=== PATIENT | male | born 1950 | race Caucasian/White ===

== ENCOUNTER → 2016-02-27 | Day surgery (SDC) | payer OTHER ==
[2016-02-23 11:32] VITALS: Ht 177.8 cm; Wt 109.1 kg
[~2016-02-27] VITALS: Ht 177.8 cm; Wt 109.1 kg
[~2016-02-27] MED LIST: ALLO300T2 PO; ATROPINE SULFATE 0.1 MG/ML 5ML SYR IV PRN; CEFAZOLIN 2000 MG/60 ML D5W IV SCH; CEFAZOLIN SOD 1 GM VIAL IRRIG ONE; DRGTP25 EXT; FENTANYL CITRATE INJ 50 MCG/1 ML 2 ML VIAL IV PRN; FENTANYL CITRATE INJ 50 MCG/1 ML 2 ML VIAL ONE; FNTTP50 TD; HEPARIN SOD (PORCINE) 1000 UNIT/ML 10 ML VIAL FLUSH ONE; LACTATED RINGER'S 1000ML 1,000 ML IV SCH; LEVE250T PO; LEVE500T PO; LIDOCAINE HCL 1% 20 ML VIAL INJ ONE; MIDAZOLAM HCL 1 MG/ML 2ML VIAL ONE; MORP30TA23 PO; MRPSR15 PO; MoRPHine SULFATE 2 MG/ML CARP IV PRN; MoRPHine SULFATE 4 MG/ML 1 ML CARP\\VIAL IV PRN; ONDA8TAB12 PO; ONDANSETRON INJ 2 MG/ML 2 ML VIAL IV PRN; ONDANSETRON INJ 2 MG/ML 2 ML VIAL ONE; OXYC1TAB3 PO; PANT40TA PO; PATIENT'S HEIGHT AND/OR WEIGHT NEEDED SCH; PROC1TAB5 PO; PROPOFOL IV EMULSION 10 MG/ML 20 ML VIAL IV ONE; THROMBIN FOR SOLN 20000 UNIT KIT TOP ONE; ZYR10 PO; [UNRECOGNIZED DRUG - CODE] INJ
--- NOTE | 2016-02-27 06:50 | History and Physical ---
History & Physical Date Feb 27, 2016. 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 for chemotherapy- access port placement Past Medical/Surgical History Medical Problems: (1) ANXIETY STATE NOS (2) Arthroscopy of knee joint (3) CELLULITIS OF LEG (4) Cholangiocarcinoma (5) GOUT NOS (6) HYPERLIPIDEMIA NEC/NOS (7) HYPERTENSION NOS (8) Mass of skull (9) Metastatic adenocarcinoma (10) Pleural effusion (11) SYNCOPE AND COLLAPSE Additional History Hepatic Disease: Yes Allergies Coded Allergies: Ciprofloxacin (Verified Allergy, Severe, SOB/SWELLING, 02/23/16) Sulfa Antibiotics (Verified Allergy, Severe, THROAT CLOSED WITH SULFA DRUGS, 02/23/16) Codeine (Verified Allergy, Unknown, "couldn't breath", 02/27/16) Latex1 -Allergic Contact Dermititis (Unverified Allergy, Unknown, HAD LATEX CATHETER AND HAD BURNING ITCHING, 02/23/16) Home Medications Scheduled Allopurinol (Zyloprim), 300 MG PO QAM Cetirizine HCl (All Day Allergy), 10 MG PO QAM Morphine Sulfate (Ms Contin), 30 MG PO Q12 Pantoprazole (Protonix), 40 MG PO QAM Scheduled PRN Ondansetron Hcl (Zofran), 8 MG PO TID PRN for Nausea Oxycodone Ir (Roxicodone Ir), 5 MG PO Q4H PRN for Severe Pain Prochlorperazine Maleate (Compazine), 10 MG PO Q6H PRN for Nausea Physical Examination Skin: warm/dry Eyes: normal inspection Head: atraumatic Neck: supple Respiratory/Chest: no respiratory distress Cardiovascular: regular rate, rhythm Abdomen / GI: non tender Extremities: normal inspection Diagnosis metastatic carcinoma- for port placement Plan of Treatment access port placement
--- NOTE | 2016-02-27 07:47 | [facility] Operative Report ---
Operative Report Operative Date Feb 27, 2016. Pre-Operative Diagnosis metastatic carcinoma Post-Operative Diagnosis same Procedure(s) Performed port placement Surgeon Dr. Gigi Chaudhry Program Instructor Surgeon(s) None Estimated Blood Loss 10ml Findings placed via Lt cephalic vein Specimens none Anesthesia local/ sedation Complication(s) None Disposition Recovery Room / PACU I attest to the content of the Intraoperative Record and any orders documented therein. Any exceptions are noted below.
--- NOTE | 2016-02-27 07:51 | Discharge Instructions ---
Discharge Instructions Visit Reason for Visit: Cholangiocarinoma Discharge Discharge Diagnosis / Problem: cholangiocarcinoma, port placement Discharge Goals Goal(s): Decrease discomfort, Improve function, Improve disease control Activity Recommendations Activity Limitations: as noted below Lifting Limitations: no more than 10 pounds Exercise/Sports Limitations: until after follow-up appointment May Resume Sexual Activity: when tolerated Shower/Bathe: tomorrow Driving or Machine Use: resume 3 days after discharge Anesthesia . Post Anesthesia Instructions: If you have had General Anesthesia or IV Sedation: * Do not drive today. * Resume driving when surgeon permits. * Do not make important decisions or sign legal documents today. * Call surgeon for: 1. Temperature elevations greater than 101 degrees F. 2. Uncontrollable pain. 3. Excessive bleeding. 4. Persistent nausea and vomiting. 5. Medication intolerance (nausea, vomiting or rash). * For nausea and vomiting use only clear liquids such as: tea, soda, bouillon until nausea subsides, then gradually increase diet as tolerated. * If you have any concerns or questions, call your surgeon's office. If physician is unavailable and it is an emergency, call 911 or go to the nearest emergency room. . Instructions / Follow-Up Instructions / Follow-Up SPECIAL CARE INSTRUCTIONS: * Cover incisions and change daily for comfort/drainage. * May use pain medication you already have for pain * Expect some swelling and bruising. Call your doctor if: * Temperature above 101 degrees * Pain not relieved by pain medicine ordered * There is increased drainage or redness from any incision * You have any unanswered questions or concerns [phone]. FOLLOW UP VISIT: If not already scheduled, please call the office for a follow-up visit. for 2 weeks- [facility] OFFICE PHONE NUMBER: Dr. Chaudhry Office Diet Recommendations Recommended Home Diet: resume previous diet Procedures Procedures Performed: Insertion of A-Port In Left Cephalic Vein Pending Studies Studies pending at discharge: no Medical Emergencies . Who to Call and When: Medical Emergencies: If at any time you feel your situation is an emergency, please call 911 immediately. . Non-Emergent Contact Non-Emergency issues call your: Surgeon . . "Provider Documentation" section prepared by Gigi Chaudhry.
--- NOTE | 2016-02-27 08:01 | Anesthesiology Progress Note ---
Anesthesia Post Op Note Date & Time Feb 27, 2016 at 08:01 Vital Signs Pain Intensity: 0 Vital Signs Past 12 Hours Date Time Temp Pulse Resp B/P Pulse Ox O2 Delivery O2 Flow Rate FiO2 02/27/16 07:49 36.2 87 16 127/85 100 Mask 10 Notes Mental Status: alert / awake / arousable, participated in evaluation Pt Amnestic to Procedure: Yes Nausea / Vomiting: adequately controlled Pain: adequately controlled Airway Patency, RR, SpO2: stable & adequate BP & HR: stable & adequate Hydration State: stable & adequate Anesthetic Complications: no major complications apparent
--- NOTE | 2016-02-27 08:23 | OPERATIVE REPORT ---
DATE OF OPERATION: 02/27/2016 NAME OF OPERATION: Port placement. PREOPERATIVE DIAGNOSIS: Cholangiocarcinoma. POSTOPERATIVE DIAGNOSIS: Same. STAFF SURGEON: Dr. Chaudhry. ANESTHESIA: 1% plain lidocaine with sedation. DESCRIPTION OF PROCEDURE: The patient was brought in the operating room and placed on the operating table in supine position. His left chest was prepped and draped in usual fashion. Using 1% plain lidocaine, skin and subcutaneous tissue over the left deltopectoral groove were anesthetized. Incision made carrying dissection down identifying the cephalic vein which was ligated distally using 2-0 silk suture. It was then opened and under fluoroscopy, a catheter was placed down into the superior vena cava and then secured in place after appropriate aspiration and flushing with heparinized solution. It was secured using 2-0 silk suture. A pocket was fashioned in the subcutaneous tissue. The port was attached to the catheter. The port was aspirated and flushed with heparinized solution. It was placed into the pocket and then secured using 3-0 Prolene suture. The deep tissue was reapproximated using 2-0 plain catgut suture and 2-0 chromic catgut suture. The pocket was irrigated with antibiotic solution and also some thrombin was used. The skin was reapproximated using interrupted 4-0 nylon suture. Dressing applied and patient transferred to recovery room in stable condition. I attest to the content of the Intraoperative Record and any orders documented therein. Any exceptio ns are noted below.
--- NOTE | 2016-02-27 08:26 | DIAGNOSTIC IMAGING REPORT ---
CHEST ONE VIEW PORTABLE HISTORY: Status post port placement. COMPARISON: Chest 02/17/2016. FINDINGS: Interval placement of a left subclavian Port-A-Cath with the tip terminating in the distal SVC. No pneumothorax. The heart is mildly enlarged. Blunting of the bilateral costophrenic sulci. Bibasilar linear densities favor subsegmental atelectasis. The upper lung zones are clear. IMPRESSION: 1. Interval placement left subclavian Port-A-Cath which terminates in the SVC. No pneumothorax. 2. Suspect trace bilateral pleural effusions. Electronically signed by: Coleman Schulz M.D. 02/27/2016 8:24 AM
[2016-02-27 08:30] VITALS: BP 132/84; PULSE 93; TEMP 36.8; O2SAT 92
[2016-02-27 09:00] VITALS: BP 138/80; PULSE 99; TEMP 36.5; O2SAT 93
== END | disposition home or self-care (01) ==
LOC: C.ACU 05:10
PROVIDERS: ATTEND Surgery
DX: C22.1 Intrahepatic bile duct carcinoma (principal); C79.51 Secondary malignant neoplasm of bone; I10 Essential (primary) hypertension; M10.9 Gout, unspecified; Z88.5 Allergy status to narcotic agent; Z88.2 Allergy status to sulfonamides; Z88.1 Allergy status to other antibiotic agents; Z91.040 Latex allergy status; Z68.37 Body mass index [BMI] 37.0-37.9, adult; Z98.890 Other specified postprocedural states

== ENCOUNTER 2016-03-04 11:43 | Inpatient (IN) | payer OTHER ==
[~2016-03-04] VITALS: Ht 177.8 cm; Wt 105.6 kg
[~2016-03-04 11:43] MED LIST changes: -ATROPINE SULFATE 0.1 MG/ML 5ML SYR IV PRN; -CEFAZOLIN 2000 MG/60 ML D5W IV SCH; -CEFAZOLIN SOD 1 GM VIAL IRRIG ONE; -DRGTP25 EXT; -FENTANYL CITRATE INJ 50 MCG/1 ML 2 ML VIAL IV PRN; -FENTANYL CITRATE INJ 50 MCG/1 ML 2 ML VIAL ONE; -FNTTP50 TD; -HEPARIN SOD (PORCINE) 1000 UNIT/ML 10 ML VIAL FLUSH ONE; -LACTATED RINGER'S 1000ML 1,000 ML IV SCH; -LEVE250T PO; -LEVE500T PO; -LIDOCAINE HCL 1% 20 ML VIAL INJ ONE; -MIDAZOLAM HCL 1 MG/ML 2ML VIAL ONE; -MRPSR15 PO; -MoRPHine SULFATE 2 MG/ML CARP IV PRN; -MoRPHine SULFATE 4 MG/ML 1 ML CARP\\VIAL IV PRN; -ONDANSETRON INJ 2 MG/ML 2 ML VIAL IV PRN; -ONDANSETRON INJ 2 MG/ML 2 ML VIAL ONE; -PATIENT'S HEIGHT AND/OR WEIGHT NEEDED SCH; -PROPOFOL IV EMULSION 10 MG/ML 20 ML VIAL IV ONE; -THROMBIN FOR SOLN 20000 UNIT KIT TOP ONE; -[UNRECOGNIZED DRUG - CODE] INJ
[2016-03-04] MEDS ORDERED: SODIUM CHLORIDE 0.9% 1000ML 1,000 ML IV STA (12:13)
[2016-03-04] MEDS ORDERED: ONDANSETRON INJ 2 MG/ML 2 ML VIAL IV STA ×2 (12:13→13:48)
[2016-03-04] MEDS ORDERED: MoRPHine SULFATE 4 MG/ML 1 ML CARP\\VIAL IV STA (12:13)
[2016-03-04 12:58] LABS: BUN/CREATININE RATIO 15.3 (10-20); CALCIUM 8.6 mg/dl (8.5-10.1); POTASSIUM 3.4 mmol/L (3.5-5.1)
[2016-03-04 13:01] LABS: ALB/GLOB RATIO 0.8 (0.9-2)
[2016-03-04 13:18] LABS: COMPLETE YES
--- NOTE | 2016-03-04 13:21 | DIAGNOSTIC IMAGING REPORT ---
CHEST 2 VIEWS ROUTINE HISTORY: Nausea. Vomiting. COMPARISON: Chest 02/27/2016. FINDINGS: No focal lung consolidations to suggest pneumonia. No evidence for pulmonary edema. The heart remains mildly enlarged. Small right pleural effusion persists. There are few scattered nodules consistent with the patient's history of metastatic disease. Left subclavian Port-A-Cath terminates at the distal SVC. No pneumothorax. IMPRESSION: 1. Overall, no significant change compared to the prior studies. 2. Small right pleural effusion and scattered metastatic pulmonary nodules are again noted. Electronically signed by: Coleman Schulz M.D. 03/04/2016 1:19 PM Dictated Date/Time: 03/04/2016 1:17 PM
--- NOTE | 2016-03-04 13:23 | DIAGNOSTIC IMAGING REPORT ---
ABDOMEN 2 VIEWS HISTORY: Nausea and vomiting. COMPARISON: Abdomen and pelvis CT 02/02/2016. FINDINGS: No definite pneumoperitoneum or pneumatosis. There are no dilated loops of bowel to suggest an obstruction. Small right pleural effusion persists. A few scattered lytic osseous lesions are again noted. IMPRESSION: 1. No evidence for bowel obstruction. 2. A few scattered lytic metastatic osseous lesions are again noted. 3. Small right pleural effusion persists. Electronically signed by: Coleman Schulz M.D. 03/04/2016 1:21 PM Dictated Date/Time: 03/04/2016 1:19 PM
[2016-03-04] MEDS ORDERED: DiphenhydrAMINE HCL 50 MG/ML VIAL IV STA (13:48)
--- NOTE | 2016-03-04 14:28 | EMERGENCY ROOM VISIT NOTE ---
ED Visit Note First contact with patient: 11:57 65-year-old male with a history of metastatic cancer was fully evaluated by Daryl Mackey PA-C. Please see his note. I also independently evaluated the patient. The patient is markedly anemic. He will require transfusion. The patient will require admission. The hospitalist was consulted. 1600 Revision of the CBC was made and it was found that the patient was not anemic. Therefore the patient will not require transfusion . IMPRESSION: Metastatic Cancer
[2016-03-04] MEDS ORDERED: LORAZEPAM 2 MG/ML 1 ML VIAL IV PRN (14:45)
[2016-03-04] MEDS ORDERED: DiphenhydrAMINE HCL 50 MG/ML VIAL IV PRN ×2 (14:45)
[2016-03-04] MEDS ORDERED: ZOLPIDEM TARTRATE 5 MG TAB PO PRN (14:45)
[2016-03-04] MEDS: PROMETHAZINE HCL INJ 25 MG in SODIUM CHLORIDE 0.9% 50ML 50 ML IV PRN (14:56)
[2016-03-04] MEDS: HYDROmorphone INJ 0.5 MG/0.5 ML SYR IV PRN ×2 (14:56→17:19)
--- NOTE | 2016-03-04 15:13 | History and Physical ---
History & Physical Date & Time of Service: Mar 04, 2016 at 15:02 Chief Complaint: Vomiting X 2 Days-Chemo Treatment Made Him Sick Primary Care Physician: Travis Lenz M.D. History of Present Illness Source: patient, spouse Patient is a 65-year-old male with a known history of cholangiocarcinoma and metastatic adenocarcinoma, most recently hospitalized from February 01 of February 10 for a pleural effusion requiring a Pleurx catheter, which has since been removed in the outpatient setting by Dr. Gaston, who presents to the emergency department with shortness of breath, generalized malaise, intractable nausea and progressive generalized pain. Past Medical/Surgical History Medical Problems: (1) ANXIETY STATE NOS Status: Chronic (2) Arthroscopy of knee joint Status: Resolved (3) CELLULITIS OF LEG Status: Resolved (4) GOUT NOS Status: Resolved (5) HYPERLIPIDEMIA NEC/NOS Status: Chronic (6) HYPERTENSION NOS Status: Chronic (7) Metastatic adenocarcinoma Permanent Comment: Metastatic cholangiocarcinoma to the brain Treatment: 1. gemcitabine/cisplatin chemotherapy 2 craniotomy April 2015 for calvarial metastatic disease 3. Ongoing chemotherapy increasing pain of the right rib area 4. Status post completion of radiation therapy to the right ribs and liver received 3000 cGy completed 02/10/2016 Status: Chronic (8) SYNCOPE AND COLLAPSE Status: Chronic Family History Diabetes mellitus FH: heart disease FH: lung disease FHx: cancer Hypertension Social History Smoking Status: Former Smoker Smokeless Tobacco Use: No Alcohol Use: none Drug Use: none Marital Status: Housing status: lives with family Occupational Status: retired Immunizations History of Influenza Vaccine: No History of Tetanus Vaccine?: Yes History of Pneumococcal: No History of Hepatitis B Vaccine: Yes Multi-Drug Resistant Organisms History of MDRO: No Allergies Coded Allergies: Ciprofloxacin (Verified Allergy, Severe, SOB/SWELLING, 03/04/16) Sulfa Antibiotics (Verified Allergy, Severe, THROAT CLOSED WITH SULFA DRUGS, 03/04/16) Codeine (Verified Allergy, Unknown, "couldn't breath", 03/04/16) Latex1 -Allergic Contact Dermititis (Unverified Allergy, Unknown, HAD LATEX CATHETER AND HAD BURNING ITCHING, 03/04/16) Home Medications Scheduled Allopurinol (Zyloprim), 300 MG PO QAM Cetirizine HCl (All Day Allergy), 10 MG PO QAM Morphine Sulfate (Ms Contin), 30 MG PO Q12 Pantoprazole (Protonix), 40 MG PO QAM Scheduled PRN Ondansetron Hcl (Zofran), 8 MG PO TID PRN for Nausea Oxycodone Ir (Roxicodone Ir), 5 MG PO Q4H PRN for Severe Pain Prochlorperazine Maleate (Compazine), 10 MG PO Q6H PRN for Nausea Review of Systems The patient denies chest pain, palpitations, cough, lower extremity swelling, vision change, hearing change, sore throat, fevers, chills, sweats, blood in urine or stool, dysuria, urinary frequency or urgency, lightheadedness, dizziness, headache, memory loss, rash, abnormal bruising or bleeding, imbalance , focal weakness, numbness or tingling in arms or legs, arthralgias or myalgias , back or neck pain, night sweats, or allergy symptoms. The review of systems is otherwise negative other than for that already noted above, and at least 10 systems have been reviewed. Physical Exam Vital Signs Date Time Temp Pulse Resp B/P Pulse Ox O2 Delivery O2 Flow Rate FiO2 03/04/16 14:37 74 20 126/78 98 Room Air 03/04/16 11:53 36.4 85 18 188/80 98 Room Air The patient is awake, well-developed and adequately nourished, alert and oriented 3, normocephalic and atraumatic, lying in bed and in mild distress secondary to pain. HEENT--PERRL, EOMI, mucous membranes and oropharynx dry. Neck--supple, no JVD or bruits, thyroid normal, trachea midline, no adenopathy. Heart--normal S1 and S2, no extra beats, no murmurs, rubs or gallops. Lungs--clear bilaterally with good air movement, no respiratory distress, no accessory muscle use. Abdomen--normal bowel sounds and soft, nontender and nondistended, no hernias or masses, no organomegaly. Extremities--no cyanosis, clubbing. There is bilateral pitting Edema right greater than left. There are good distal pulses b/l. Dermatologic--normal skin turgor, normal color, warm and dry, no abnormal lymph nodes, no rash. Neurologic--cranial nerves II through XII grossly intact, motor and sensory examination normal. Rheumatologic--normal range of motion, nontender, muscles and joints. Psychiatric--normal affect. Diagnostics Laboratory Results Results Past 24 Hours Test 03/04/16 12:30 Range/Units White Blood Count 5.70 4.8-10.8 K/uL Red Blood Count 1.90 4.7-6.1 M/uL Hemoglobin 5.8 14.0-18.0 g/dL Hematocrit 17.4 42-52 % Mean Corpuscular Volume 91.6 80-100 fL Mean Corpuscular Hemoglobin 30.5 25-34 pg Mean Corpuscular Hemoglobin Concent 33.3 32-36 g/dl Platelet Count 45 130-400 K/uL Mean Platelet Volume 8.9 7.4-10.4 fL Neutrophils (%) (Auto) 77.3 % Lymphocytes (%) (Auto) 18.8 % Monocytes (%) (Auto) 2.1 % Eosinophils (%) (Auto) 1.6 % Basophils (%) (Auto) 0.0 % Neutrophils # (Auto) 4.41 1.4-6.5 K/uL Lymphocytes # (Auto) 1.07 1.2-3.4 K/uL Monocytes # (Auto) 0.12 0.11-0.59 K/uL Eosinophils # (Auto) 0.09 0-0.5 K/uL Basophils # (Auto) 0.00 0-0.2 K/uL RDW Standard Deviation 49.2 36.4-46.3 fL RDW Coefficient of Variation 14.7 11.5-14.5 % Immature Granulocyte % (Auto) 0.2 % Immature Granulocyte # (Auto) 0.01 0.00-0.02 K/uL Hypersegmented Polys 1+ Tear Drop Cells 1+ Sodium Level 139 136-145 mmol/L Potassium Level 3.4 3.5-5.1 mmol/L Chloride Level 103 98-107 mmol/L Carbon Dioxide Level 25 21-32 mmol/L Anion Gap 11.0 3-11 mmol/L Blood Urea Nitrogen 15 7-18 mg/dl Creatinine 1.00 0.60-1.40 mg/dl Est Creatinine Clear Calc Drug Dose 89.6 ml/min Estimated GFR () 91.1 Estimated GFR (Non- 78.6 BUN/Creatinine Ratio 15.3 10-20 Random Glucose 104 70-99 mg/dl Calcium Level 8.6 8.5-10.1 mg/dl Total Bilirubin 0.9 0.2-1 mg/dl Aspartate Amino Transf (AST/SGOT) 38 15-37 U/L Alanine Aminotransferase (ALT/SGPT) 27 12-78 U/L Alkaline Phosphatase 97 45-117 U/L Total Protein 7.1 6.4-8.2 gm/dl Albumin 3.2 3.4-5.0 gm/dl Globulin 3.9 2.5-4.0 gm/dl Albumin/Globulin Ratio 0.8 0.9-2 Amylase Level 44 25-115 U/L Lipase 95 73-393 U/L Diagnostic Radiology Patient Name: MALLORY DO Unit Number: [id number] Dictated: 03/04/161316 Transcribed: 03/04/161316 [facility] Printed Date/Time: [~ rep prt dt]/[~ rep prt tm] [~ rep ct labl] - [~ rep ct ivnm] [facility] [place] [address] Dictated: 03/04/161316 Transcribed: 03/04/161316 [facility] Printed Date/Time: [~ rep prt dt]/[~ rep prt tm] [~ rep ct labl] - [~ rep ct ivnm] [~ rep ct add3]] CHEST 2 VIEWS ROUTINE HISTORY: Nausea. Vomiting. COMPARISON: Chest 02/27/2016. FINDINGS: No focal lung consolidations to suggest pneumonia. No evidence for pulmonary edema. The heart remains mildly enlarged. Small right pleural effusion persists. There are few scattered nodules consistent with the patient's history of metastatic disease. Left subclavian Port-A-Cath terminates at the distal SVC. No pneumothorax. IMPRESSION: 1. Overall, no significant change compared to the prior studies. 2. Small right pleural effusion and scattered metastatic pulmonary nodules are again noted. Electronically signed by: Coleman Schulz M.D. 03/04/2016 1:19 PM Dictated Date/Time: 03/04/2016 1:17 PM The status of this report is Signed. Draft = Not yet reviewed or approved by Radiologist. Signed = Reviewed and approved by Radiologist. <AttendingPhy></AttendingPhy> <FamilyPhy>Maximiliano Noble D.O.</FamilyPhy> < PrimaryPhy>Travis Lenz M.D.</PrimaryPhy> <UnitNumber>[id number]</ UnitNumber> <VisitNumber>[id number]</VisitNumber> <PatientName>MALLORY DO</PatientName> <DateOfBirth>1950</DateOfBirth> <Location>[facility]</ Location> <ServiceDate>03/04/16</ServiceDate> <MNE>ESINDI</MNE> <OrderingPhy> Mackey Cory D PA-C</OrderingPhy> <OrderingPhyMNE>f rep ord dr romo</ OrderingPhyMNE> <DictatingPhyMNE>f rep dict dr romo</DictatingPhyMNE> <CCListMNE> f rep ct mne</CCListMNE> <AdmittingPhyMNE>f pt admit dr romo</AdmittingPhyMNE> < AttendingPhyMNE>f pt attend dr romo</AttendingPhyMNE> <ConsultingPhyMNE>f pt consult dr romo</ConsultingPhyMNE> <FamilyPhyMNE>f pt fam dr romo</FamilyPhyMNE> <OtherPhyMNE>f pt other dr romo</OtherPhyMNE> < PrimaryPhyMNE>f pt prim care dr romo</PrimaryPhyMNE> <ReferringPhyMNE>f pt referring dr romo</ReferringPhyMNE> Patient Name: MALLORY DO Unit Number: [id number] Dictated: 03/04/161318 Transcribed: 03/04/161318 [facility] Printed Date/Time: [~ rep prt dt]/[~ rep prt tm] [~ rep ct labl] - [~ rep ct ivnm] [facility] [place] [address] Dictated: 03/04/161318 Transcribed: 03/04/161318 [facility] Printed Date/Time: [~ rep prt dt]/[~ rep prt tm] [~ rep ct labl] - [~ rep ct ivnm] [~ rep ct add3]] ABDOMEN 2 VIEWS HISTORY: Nausea and vomiting. COMPARISON: Abdomen and pelvis CT 02/02/2016. FINDINGS: No definite pneumoperitoneum or pneumatosis. There are no dilated loops of bowel to suggest an obstruction. Small right pleural effusion persists. A few scattered lytic osseous lesions are again noted. IMPRESSION: 1. No evidence for bowel obstruction. 2. A few scattered lytic metastatic osseous lesions are again noted. 3. Small right pleural effusion persists. Electronically signed by: Coleman Schulz M.D. 03/04/2016 1:21 PM Dictated Date/Time: 03/04/2016 1:19 PM The status of this report is Signed. Draft = Not yet reviewed or approved by Radiologist. Signed = Reviewed and approved by Radiologist. <AttendingPhy></AttendingPhy> <FamilyPhy>Maximiliano Noble D.O.</FamilyPhy> < PrimaryPhy>Travis Lenz M.D.</PrimaryPhy> <UnitNumber>[id number]</ UnitNumber> <VisitNumber>[id number]</VisitNumber> <PatientName>MALLORY DO</PatientName> <DateOfBirth>1950</DateOfBirth> <Location>[facility]</ Location> <ServiceDate>03/04/16</ServiceDate> <MNE>ESINDI</MNE> <OrderingPhy> Mackey Cory D PA-C</OrderingPhy> <OrderingPhyMNE>f rep ord dr romo</ OrderingPhyMNE> <DictatingPhyMNE>f rep dict dr romo</DictatingPhyMNE> <CCListMNE> f rep ct mne</CCListMNE> <AdmittingPhyMNE>f pt admit dr romo</AdmittingPhyMNE> < AttendingPhyMNE>f pt attend dr romo</AttendingPhyMNE> <ConsultingPhyMNE>f pt consult dr romo</ConsultingPhyMNE> <FamilyPhyMNE>f pt fam dr romo</FamilyPhyMNE> <OtherPhyMNE>f pt other dr romo</OtherPhyMNE> < PrimaryPhyMNE>f pt prim care dr romo</PrimaryPhyMNE> <ReferringPhyMNE>f pt referring dr romo</ReferringPhyMNE> Impression Assessment and Plan Symptomatic anemia with a history of cholangiocarcinoma and metastatic adenocarcinoma undergoing chemotherapy--patient be admitted to the medical oncology suite. He'll be transfused 2 units of packed red blood cells now, without have a follow-up H&H, and 2 more will be on hold. He'll be placed on normal saline with potassium chloride 20 mEq at 100 ML's per hour. We'll follow serial basic metabolic panel and magnesium levels. His oncologist Dr. Noble will be consulted. Thrombocytopenia--platelets on admission are 45. He will have serial laboratories performed, and will be transfused as needed. He does not show any active signs of bleeding at this time. Gout--continue allopurinol 300 mg by mouth every morning. GERD--continue pantoprazole 40 mg by mouth every morning. Pain management--continue MS Contin 30 mg by mouth every 12 hours, increase oxycodone IR when necessary from 5-10 mg by mouth every 4 hours when necessary, and have available Dilaudid 0.5-1 mg IV every 2 hours when necessary breakthrough pain. Allergy--continue cetirizine 10 mg by mouth daily. Pleural effusion history requiring Pleurx catheter--chest x-ray reveals only a small right pleural effusion at this time. Level of Care Med/Surg Advanced Directives Existing Advance Directive: No Existing Living Will: No Existing Power of Solar Technician: No Resuscitation Status FULL RESUSCITATION VTE Prophylaxis VTE Risk Assessment Done? Y/N: Yes Risk Level: Moderate Given or contraindicated: SCD's Social Service Consult Cancer Patient Under [place]
[2016-03-04 15:39] LABS: COMPLETE YES; EOS % 1.3 %; HEMATOCRIT 36.7 % (42-52); IG% 0.2 %; LYMPH % 19.2 %; LYMPH ABS # 0.89 K/uL (1.2-3.4); MEAN CELL VOLUME 91.3 fL (80-100); MEAN CORPUSCULAR HEMOGLOBIN 31.1 pg (25-34); MEAN CORPUSCULAR HGB CONC 34.1 g/dl (32-36); MONO % 1.7 %; NEUT % 77.6 %; PLATELET COUNT 42 K/uL (130-400); PLT ESTIMATE DECREASED; RED BLOOD COUNT 4.02 M/uL (4.7-6.1); WHITE BLOOD COUNT 4.64 K/uL (4.8-10.8)
[2016-03-04 16:24] VITALS: BP 157/95; PULSE 74; TEMP 37.1; O2SAT 98
[2016-03-04] MEDS: ONDANSETRON INJ 2 MG/ML 2 ML VIAL IV PRN (17:02)
[2016-03-04] MEDS: OXYCODONE HCL IR 5 MG TAB (IMMEDIATE RELEASE) PO PRN (17:04)
[2016-03-04] MEDS: HYDROmorphone INJ 1 MG/ML SYR IV PRN ×2 (19:39→22:02)
[2016-03-04 19:40] VITALS: BP 139/81; PULSE 69; TEMP 36.4; O2SAT 96
[2016-03-04] MEDS: MoRPHine SULFATE CR 15 MG TAB (MS CONTIN) PO SCH (21:58)
[2016-03-04] MEDS: LORAZEPAM 2 MG/ML 1 ML VIAL IV PRN (21:58)
[2016-03-04 23:08] VITALS: BP 124/85; PULSE 78; TEMP 36.7; O2SAT 95
[2016-03-05] VITALS (7 sets, daily range): BP systolic 114–135; BP diastolic 70–89; PULSE 80–97; TEMP 36.4–36.9; O2SAT 93–98
[2016-03-05] MEDS: ONDANSETRON INJ 2 MG/ML 2 ML VIAL IV PRN ×2 (04:31→14:54)
[2016-03-05] MEDS: HYDROmorphone INJ 1 MG/ML SYR IV PRN ×4 (04:31→19:17)
[2016-03-05 06:19] LABS: MEAN CORPUSCULAR HGB CONC 32.8 g/dl (32-36)
[2016-03-05 06:22] LABS: HEMATOCRIT 37.2 % (42-52); MEAN CELL VOLUME 91.9 fL (80-100); MEAN CORPUSCULAR HEMOGLOBIN 30.1 pg (25-34); RED BLOOD COUNT 4.05 M/uL (4.7-6.1); WHITE BLOOD COUNT 4.77 K/uL (4.8-10.8)
[2016-03-05 06:42] LABS: PLATELET COUNT 42 K/uL (130-400)
[2016-03-05 06:43] LABS: COMPLETE YES; EOS % 1.5 %; IG% 0.4 %; INR 1.1 (0.9-1.1); LYMPH ABS # 0.86 K/uL (1.2-3.4); MONO % 2.3 %; NEUT % 77.8 %; PARTIAL THROMBOPLASTIN RATIO 1.3; PLT ESTIMATE DECREASED; PROTHROMBIN TIME (PATIENT) 12.3 SECONDS (9.0-12.0); TEAR DROP CELLS 2+
[2016-03-05 06:53] LABS: CALCIUM 8.4 mg/dl (8.5-10.1); CREATININE 1.1 mg/dl (0.60-1.40); MAGNESIUM 1.6 mg/dl (1.8-2.4); POTASSIUM 3.1 mmol/L (3.5-5.1)
[2016-03-05] MEDS: PROMETHAZINE HCL INJ 25 MG in SODIUM CHLORIDE 0.9% 50ML 50 ML IV PRN ×2 (09:09→19:24)
--- NOTE | 2016-03-05 09:47 | Clinical Documentation Query ---
CLINICAL DOCUMENTATION QUERY 65-y/o male who presents with N/V. Patient was originally thought to have chemotherapy induced anemia but that lab draw was reported in error and repeated to be essentially normal. It seems in the meantime the patient was admitted. In your clinical opinion is this patient being managed for: (x ) Chemo induced Nausea & Vomiting treated with IV antienemics ( ) Other explanation of clinical findings (Please Explain) ( ) Unable to determine (Please Define) ( ) Need to Discuss ( ) Not Agree The medical record reflects the following clinical findings, treatment, and risk factors. Clinical Indicators: N/V Treatment:IV Zofran Risk Factors:Chemotherapy Please clarify and document your clinical opinion in the progress notes and discharge summary. Terms such as "probable", "suspected", "likely", "questionable", "possible", or "still to be ruled out" are acceptable. IF IN AGREEMENT, YOU MUST DOCUMENT ABOVE DIAGNOSTIC STATEMENT IN DAILY PROGRESS NOTES AND DISCHARGE SUMMARY. This document is not part of the patient's record. Thank You, Gen Merino, RN [phone]
[2016-03-05] MEDS: CETIRIZINE HCL 10 MG TAB PO SCH (09:48)
[2016-03-05] MEDS: PANTOprazole SOD 40 MG TAB PO SCH (09:49)
[2016-03-05] MEDS: ALLOPURINOL 300 MG TAB PO SCH (09:49)
[2016-03-05] MEDS: MoRPHine SULFATE CR 15 MG TAB (MS CONTIN) PO SCH ×2 (09:53→20:24)
--- NOTE | 2016-03-05 11:18 | Oncology Consultation ---
Oncology/Heme Consultation Date of Consultation: Mar 05, 2016. Attending Physician: Diony Feliciano D.O. Reason for Consultation: Patient with a history of metastatic adenocarcinoma with pathology most consistent with cholangiocarcinoma Refractory nausea vomiting History of Present Illness Mr. 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 In July 2014 Mr. Friedman experienced temporary loss of vision involving the right eye. CT scan of the head abdomen and pelvis were performed in July 2015. There was a new osteolytic metastatic lesions seen in the right temporal calvarium. He also had experienced a small lump in the right frontal area and developed a dull headache. A fine-needle aspiration done in April 2015 showed epithelial cells consistent with a malignant neoplasm. A resection of the frontal bone mass done in April 2015 would reveal metastatic adenocarcinoma most consistent with cholangiocarcinoma he has been receiving systemic chemotherapy first with cisplatin and gemcitabine but unfortunately with progression and most recently just a few days ago he received leucovorin 5-FU and oxaliplatin. He is now admitted with refractory nausea and vomiting. He has known pulmonary nodules as well as bony metastases and liver as well as splenic metastases. He denies any fever or chills. His pain seems fairly well controlled although he does have some mild abdominal pain. 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 Gemcitabine/cisplatin chemotherapy - last cycle - 08/05/2015 2. Craniotomy - 04/2015 (Dr. Webb) - for calvarial metastatic disease Status: Acute (5) Metastatic cancer Status: Acute (6) Vomiting Status: Acute Family History Diabetes mellitus FH: heart disease FH: lung disease FHx: cancer Hypertension Social History Smoking Status: Former Smoker Smokeless Tobacco Use: No Alcohol Use: none Drug Use: none Marital Status: Housing Status: lives with family Occupation Status: retired Allergies Coded Allergies: Ciprofloxacin (Verified Allergy, Severe, SOB/SWELLING, 03/04/16) Sulfa Antibiotics (Verified Allergy, Severe, THROAT CLOSED WITH SULFA DRUGS, 03/04/16) Codeine (Verified Allergy, Unknown, "couldn't breath", 03/04/16) Latex1 -Allergic Contact Dermititis (Unverified Allergy, Unknown, HAD LATEX CATHETER AND HAD BURNING ITCHING, 03/04/16) Home Medications Scheduled Allopurinol (Zyloprim), 300 MG PO QAM Cetirizine HCl (All Day Allergy), 10 MG PO QAM Morphine Sulfate (Ms Contin), 30 MG PO Q12 Pantoprazole (Protonix), 40 MG PO QAM Scheduled PRN Ondansetron Hcl (Zofran), 8 MG PO TID PRN for Nausea Oxycodone Ir (Roxicodone Ir), 5 MG PO Q4H PRN for Severe Pain Prochlorperazine Maleate (Compazine), 10 MG PO Q6H PRN for Nausea Current Inpatient Medications Current Inpatient Medications Medications (Trade) Dose Ordered Sig/Aleah Route Start Time Stop Time Status Last Admin Dose Admin Zolpidem Tartrate (Ambien Tab) 5 mg HSZ PRN PO 03/04/16 14:45 04/03/16 14:44 Allopurinol (Zyloprim Tab) 300 mg QAM PO 03/05/16 08:00 04/04/16 08:59 03/05/16 09:49 300 MG Cetirizine HCl (zyrTEC TAB) 10 mg QAM PO 03/05/16 08:00 04/04/16 08:59 03/05/16 09:48 10 MG Oxycodone HCl (Roxicodone Immediate Rel Tab) 10 mg Q4H PRN PO 03/04/16 14:45 03/18/16 14:44 Pantoprazole Sodium (Protonix Tab) 40 mg QAM PO 03/05/16 08:00 04/04/16 08:59 03/05/16 09:49 40 MG Morphine Sulfate (Oramorph Sr Tab) 30 mg Q12 PO 03/04/16 21:00 03/18/16 20:59 03/05/16 09:53 30 MG Ondansetron HCl (Zofran Inj) 4 mg Q6H PRN IV 03/04/16 14:45 04/03/16 14:44 03/05/16 04:31 4 MG Diphenhydramine HCl (Benadryl Inj) 25 mg Q4H PRN IV 03/04/16 14:45 04/03/16 14:44 Diphenhydramine HCl (Benadryl Inj) 50 mg Q6H PRN IV 03/04/16 14:45 04/03/16 14:44 Lorazepam (Ativan Inj) 0.5 mg Q4H PRN IV 03/04/16 14:45 04/03/16 14:44 Lorazepam (Ativan Inj) 1 mg Q4H PRN IV 03/04/16 14:45 04/03/16 14:44 03/04/16 21:58 1 MG Hydromorphone HCl (Dilaudid Inj) 1 mg Q2H PRN IV 03/04/16 14:45 03/18/16 14:44 03/05/16 08:43 1 MG Hydromorphone HCl 0.5 mg 0.5 mg Q2H PRN IV 03/04/16 14:45 03/18/16 14:44 03/04/16 17:19 0.5 MG Promethazine HCl/ Sodium Chloride (Phenergan Inj/ Nss 50ml) 51 ml @ 204 mls/hr Q6H PRN IV 03/04/16 14:45 04/03/16 14:44 03/05/16 09:09 204 MLS/HR Heparin Sodium (Porcine) (Heparin 100 Unit/ml 5ml Flush) 5 ml PRN PRN IV 03/04/16 21:45 04/03/16 21:44 03/05/16 10:41 5 ML Review of Systems Constitutional: Negative for night sweats, or fever Eyes: Negative for event change of vision ENT: Negative for epistaxis, nasal discharge, sore throat, or deafness Cardiovascular: Negative for chest pain, palpitations, dizziness, diaphoresis Respiratory: Negative for new shortness of breath,hemoptysis, or purulent cough Gastrointestinal: Negative for diarrhea, hematemesis, melena, nausea, vomiting , or dyspepsia. If anything he has been constipated. Has had some mild abdominal pain Integumentary (skin): Negative for rash or jaundice discoloration Genitourinary: Negative for urinary frequency, hematuria, or dysuria Neurological: Negative for weakness, seizure activity, headache, or dizziness Lymphatic/Hematologic: Negative for petechiae, bleeding or new adenopathy Musculoskeletal: Negative for new joint or back pain Allergic/Immunologic: Negative for unusual rash or pruritis. Physical Exam Date Time Temp Pulse Resp B/P Pulse Ox O2 Delivery O2 Flow Rate FiO2 03/05/16 08:45 98 Room Air 03/05/16 08:33 36.4 80 16 125/80 98 Room Air 03/05/16 04:00 36.4 87 20 131/87 95 Room Air 03/05/16 00:05 Room Air 03/04/16 23:08 36.7 78 16 124/85 95 Room Air 03/04/16 19:40 36.4 69 20 139/81 96 Room Air 03/04/16 19:40 Room Air 03/04/16 16:24 37.1 74 18 157/95 98 Room Air 03/04/16 14:37 74 20 126/78 98 Room Air 03/04/16 11:53 36.4 85 18 188/80 98 Room Air Constitutional: vitals are stable. Eyes: Eyes are SHAKA EOMI without conjuctival erythema or icterus. ENT: External examination was negative for masses. Neck: Negative for masses or palpable thyromegaly Respiratory: Lung sounds were generally clear bilaterally Cardiovascular: Heart was RRR without significant murmur, gallops aoe rubs Gastrointestinal: No palpable hepatic or splenomegaly. The abdomen was soft with normal bowel sounds. Lymphatic system: there was no palpable peripheral lymphadenopathy Musculoskeletal System: The musculoskeletal system seemed concordant with age. Skin: The skin was negative for jaundice. Neurologic exam: The exam was negative for any focal findings. Deep tendon reflexes were equal and symmetrical. Psychiatric exam: Was essentially negative with normal mood and effect. Extremities: Negative for edema erythema Laboratory Results Last 24 Hours Test 03/04/16 12:30 03/04/16 14:50 03/05/16 05:07 White Blood Count K/uL 4.64 K/uL 4.77 K/uL Red Blood Count M/uL 4.02 M/uL 4.05 M/uL Hemoglobin g/dL 12.5 g/dL 12.2 g/dL Hematocrit % 36.7 % 37.2 % Mean Corpuscular Volume fL 91.3 fL 91.9 fL Mean Corpuscular Hemoglobin pg 31.1 pg 30.1 pg Mean Corpuscular Hemoglobin Concent g/dl 34.1 g/dl 32.8 g/dl Platelet Count K/uL 42 K/uL 42 K/uL Mean Platelet Volume fL 10.0 fL Neutrophils (%) (Auto) % 77.6 % 77.8 % Lymphocytes (%) (Auto) % 19.2 % 18.0 % Monocytes (%) (Auto) % 1.7 % 2.3 % Eosinophils (%) (Auto) % 1.3 % 1.5 % Basophils (%) (Auto) % 0.0 % 0.0 % Neutrophils # (Auto) K/uL 3.60 K/uL 3.71 K/uL Lymphocytes # (Auto) K/uL 0.89 K/uL 0.86 K/uL Monocytes # (Auto) K/uL 0.08 K/uL 0.11 K/uL Eosinophils # (Auto) K/uL 0.06 K/uL 0.07 K/uL Basophils # (Auto) K/uL 0.00 K/uL 0.00 K/uL RDW Standard Deviation fL 49.1 fL 50.0 fL RDW Coefficient of Variation % 14.6 % 14.8 % Immature Granulocyte % (Auto) % 0.2 % 0.4 % Immature Granulocyte # (Auto) K/uL 0.01 K/uL 0.02 K/uL Hypersegmented Polys Tear Drop Cells 2+ Sodium Level 139 mmol/L 142 mmol/L Potassium Level 3.4 mmol/L 3.1 mmol/L Chloride Level 103 mmol/L 105 mmol/L Carbon Dioxide Level 25 mmol/L 26 mmol/L Anion Gap 11.0 mmol/L 11.0 mmol/L Blood Urea Nitrogen 15 mg/dl 15 mg/dl Creatinine 1.00 mg/dl 1.10 mg/dl Est Creatinine Clear Calc Drug Dose 89.6 ml/min 81.4 ml/min Estimated GFR () 91.1 81.2 Estimated GFR (Non- 78.6 70.1 BUN/Creatinine Ratio 15.3 14.0 Random Glucose 104 mg/dl 102 mg/dl Calcium Level 8.6 mg/dl 8.4 mg/dl Total Bilirubin 0.9 mg/dl 0.8 mg/dl Aspartate Amino Transf (AST/SGOT) 38 U/L 38 U/L Alanine Aminotransferase (ALT/SGPT) 27 U/L 22 U/L Alkaline Phosphatase 97 U/L 93 U/L Total Protein 7.1 gm/dl 6.9 gm/dl Albumin 3.2 gm/dl 3.0 gm/dl Globulin 3.9 gm/dl Albumin/Globulin Ratio 0.8 Amylase Level 44 U/L Lipase 95 U/L Platelet Estimate DECREASED DECREASED Prothrombin Time 12.3 SECONDS Prothromb Time International Ratio 1.1 Activated Partial Thromboplast Time 34.5 SECONDS Partial Thromboplastin Ratio 1.3 Magnesium Level 1.6 mg/dl Direct Bilirubin 0.4 mg/dl Assessment & Plan Widely metastatic adenocarcinoma presumably cholangiocarcinoma. Patient was recently treated with leucovorin 5-FU and oxaliplatin. He presents now with nausea vomiting. He tends to have a mild thrombocytopenia. Would recommend IV fluid anti-emetics and supportive care. Hopefully the nausea or resolve over the next 24-48 hours. Plain films of the abdomen have ruled out obstruction.
--- NOTE | 2016-03-05 14:09 | Progress Note ---
Subjective Date of Service: Mar 05, 2016. 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 Gemcitabine/cisplatin chemotherapy - last cycle - 08/05/2015 2. Craniotomy - 04/2015 (Dr. Webb) - for calvarial metastatic disease Status: Acute (5) Metastatic cancer Status: Acute (6) Vomiting Status: Acute Review of Systems Constitutional: + fatigue, + weakness Abdomen: + nausea, + pain All Other Systems: Reviewed and Negative Medications Current Inpatient Medications Medications (Trade) Dose Ordered Sig/Aleah Route Start Time Stop Time Status Last Admin Dose Admin Zolpidem Tartrate (Ambien Tab) 5 mg HSZ PRN PO 03/04/16 14:45 04/03/16 14:44 Allopurinol (Zyloprim Tab) 300 mg QAM PO 03/05/16 08:00 04/04/16 08:59 03/05/16 09:49 300 MG Cetirizine HCl (zyrTEC TAB) 10 mg QAM PO 03/05/16 08:00 04/04/16 08:59 03/05/16 09:48 10 MG Oxycodone HCl (Roxicodone Immediate Rel Tab) 10 mg Q4H PRN PO 03/04/16 14:45 03/18/16 14:44 Pantoprazole Sodium (Protonix Tab) 40 mg QAM PO 03/05/16 08:00 04/04/16 08:59 03/05/16 09:49 40 MG Morphine Sulfate (Oramorph Sr Tab) 30 mg Q12 PO 03/04/16 21:00 03/18/16 20:59 03/05/16 09:53 30 MG Ondansetron HCl (Zofran Inj) 4 mg Q6H PRN IV 03/04/16 14:45 04/03/16 14:44 03/05/16 04:31 4 MG Diphenhydramine HCl (Benadryl Inj) 25 mg Q4H PRN IV 03/04/16 14:45 04/03/16 14:44 Diphenhydramine HCl (Benadryl Inj) 50 mg Q6H PRN IV 03/04/16 14:45 04/03/16 14:44 Lorazepam (Ativan Inj) 0.5 mg Q4H PRN IV 03/04/16 14:45 04/03/16 14:44 Lorazepam (Ativan Inj) 1 mg Q4H PRN IV 03/04/16 14:45 04/03/16 14:44 03/04/16 21:58 1 MG Hydromorphone HCl (Dilaudid Inj) 1 mg Q2H PRN IV 03/04/16 14:45 03/18/16 14:44 03/05/16 08:43 1 MG Hydromorphone HCl 0.5 mg 0.5 mg Q2H PRN IV 03/04/16 14:45 03/18/16 14:44 03/04/16 17:19 0.5 MG Promethazine HCl/ Sodium Chloride (Phenergan Inj/ Nss 50ml) 51 ml @ 204 mls/hr Q6H PRN IV 03/04/16 14:45 04/03/16 14:44 03/05/16 09:09 204 MLS/HR Heparin Sodium (Porcine) (Heparin 100 Unit/ml 5ml Flush) 5 ml PRN PRN IV 03/04/16 21:45 04/03/16 21:44 03/05/16 10:41 5 ML Objective Vital Signs Date Time Temp Pulse Resp B/P Pulse Ox O2 Delivery O2 Flow Rate FiO2 03/05/16 11:41 36.6 91 16 121/76 97 Room Air 03/05/16 08:45 98 Room Air 03/05/16 08:33 36.4 80 16 125/80 98 Room Air 03/05/16 04:00 36.4 87 20 131/87 95 Room Air 03/05/16 00:05 Room Air 03/04/16 23:08 36.7 78 16 124/85 95 Room Air 03/04/16 19:40 36.4 69 20 139/81 96 Room Air 03/04/16 19:40 Room Air 03/04/16 16:24 37.1 74 18 157/95 98 Room Air 03/04/16 14:37 74 20 126/78 98 Room Air Physical Exam General Appearance: no apparent distress, + obese Eyes: normal inspection, EOMI, sclerae normal ENT: normal ENT inspection, hearing grossly normal, pharynx normal Neck: supple, no adenopathy, no JVD, trachea midline Respiratory/Chest: chest non-tender, lungs clear, normal breath sounds, no respiratory distress, no accessory muscle use Cardiovascular: regular rate, rhythm, no edema, no gallop, no JVD, no murmur Abdomen: normal bowel sounds, non tender, soft, no organomegaly Extremities: normal range of motion, non-tender, normal inspection, no pedal edema, no calf tenderness Neurologic/Psychiatric: flat drier II-XII nml as tested, no motor/sensory deficits, alert, normal mood/affect, oriented x 3 Skin: normal color, warm/dry, no rash Lymphatic: no adenopathy Laboratory Results Last 24 Hours Test 03/04/16 14:50 03/05/16 05:07 White Blood Count 4.64 K/uL 4.77 K/uL Red Blood Count 4.02 M/uL 4.05 M/uL Hemoglobin 12.5 g/dL 12.2 g/dL Hematocrit 36.7 % 37.2 % Mean Corpuscular Volume 91.3 fL 91.9 fL Mean Corpuscular Hemoglobin 31.1 pg 30.1 pg Mean Corpuscular Hemoglobin Concent 34.1 g/dl 32.8 g/dl Platelet Count 42 K/uL 42 K/uL Mean Platelet Volume 10.0 fL Neutrophils (%) (Auto) 77.6 % 77.8 % Lymphocytes (%) (Auto) 19.2 % 18.0 % Monocytes (%) (Auto) 1.7 % 2.3 % Eosinophils (%) (Auto) 1.3 % 1.5 % Basophils (%) (Auto) 0.0 % 0.0 % Neutrophils # (Auto) 3.60 K/uL 3.71 K/uL Lymphocytes # (Auto) 0.89 K/uL 0.86 K/uL Monocytes # (Auto) 0.08 K/uL 0.11 K/uL Eosinophils # (Auto) 0.06 K/uL 0.07 K/uL Basophils # (Auto) 0.00 K/uL 0.00 K/uL RDW Standard Deviation 49.1 fL 50.0 fL RDW Coefficient of Variation 14.6 % 14.8 % Immature Granulocyte % (Auto) 0.2 % 0.4 % Immature Granulocyte # (Auto) 0.01 K/uL 0.02 K/uL Platelet Estimate DECREASED DECREASED Tear Drop Cells 2+ Prothrombin Time 12.3 SECONDS Prothromb Time International Ratio 1.1 Activated Partial Thromboplast Time 34.5 SECONDS Partial Thromboplastin Ratio 1.3 Sodium Level 142 mmol/L Potassium Level 3.1 mmol/L Chloride Level 105 mmol/L Carbon Dioxide Level 26 mmol/L Anion Gap 11.0 mmol/L Blood Urea Nitrogen 15 mg/dl Creatinine 1.10 mg/dl Est Creatinine Clear Calc Drug Dose 81.4 ml/min Estimated GFR () 81.2 Estimated GFR (Non- 70.1 BUN/Creatinine Ratio 14.0 Random Glucose 102 mg/dl Calcium Level 8.4 mg/dl Magnesium Level 1.6 mg/dl Total Bilirubin 0.8 mg/dl Direct Bilirubin 0.4 mg/dl Aspartate Amino Transf (AST/SGOT) 38 U/L Alanine Aminotransferase (ALT/SGPT) 22 U/L Alkaline Phosphatase 93 U/L Total Protein 6.9 gm/dl Albumin 3.0 gm/dl Assessment and Plan Nausea and vomiting secondary to recent chemotherapy: completed 48 hour infusion of chemotherapy 48 hours prior to admission continue fluids, anti-emetics, look for diet to improve slowly will follow up with oncology to discuss further role of chemotherapy Thrombocytopenia--chronic, due to liver cancer and chemotherapy Anemia secondary to bone marrow suppression from chemo: Hb is stable, no signs of bleeding Gout--continue allopurinol 300 mg by mouth every morning. GERD--continue pantoprazole 40 mg by mouth every morning. Pain management--continue MS Contin 30 mg by mouth every 12 hours, increase oxycodone IR when necessary from 5-10 mg by mouth every 4 hours when necessary, and have available Dilaudid 0.5-1 mg IV every 2 hours when necessary breakthrough pain. Allergy--continue cetirizine 10 mg by mouth daily. Pleural effusion history requiring Pleurx catheter--chest x-ray reveals only a small right pleural effusion at this time. Plan: try to d/c to home tomorrow
[2016-03-06] MEDS: LORAZEPAM 2 MG/ML 1 ML VIAL IV PRN (01:18)
[2016-03-06] MEDS: HYDROmorphone INJ 1 MG/ML SYR IV PRN ×4 (01:18→18:44)
[2016-03-06 04:52] VITALS: BP 134/89; PULSE 95; TEMP 36.5; O2SAT 95
[2016-03-06 06:34] LABS: INR 1.1 (0.9-1.1); PARTIAL THROMBOPLASTIN RATIO 1.2; PROTHROMBIN TIME (PATIENT) 12.1 SECONDS (9.0-12.0)
[2016-03-06 07:02] LABS: CREATININE 1.1 mg/dl (0.60-1.40)
[2016-03-06 07:03] LABS: BUN/CREATININE RATIO 13.3 (10-20); CALCIUM 8.7 mg/dl (8.5-10.1); MAGNESIUM 1.8 mg/dl (1.8-2.4); POTASSIUM 3.5 mmol/L (3.5-5.1)
[2016-03-06] MEDS: ONDANSETRON INJ 2 MG/ML 2 ML VIAL IV PRN ×3 (07:08→18:44)
[2016-03-06] MEDS: ALLOPURINOL 300 MG TAB PO SCH (07:10)
[2016-03-06] MEDS: PANTOprazole SOD 40 MG TAB PO SCH (07:10)
[2016-03-06] MEDS: CETIRIZINE HCL 10 MG TAB PO SCH (07:10)
[2016-03-06 07:11] LABS: COMPLETE YES; EOS % 3.5 %; HEMATOCRIT 38.1 % (42-52); IG% 0.2 %; LYMPH % 27.3 %; LYMPH ABS # 1.16 K/uL (1.2-3.4); MEAN CELL VOLUME 92.3 fL (80-100); MEAN CORPUSCULAR HGB CONC 32.5 g/dl (32-36); MONO % 8.7 %; NEUT % 60.3 %; PLATELET COUNT 25 K/uL (130-400); RED BLOOD COUNT 4.13 M/uL (4.7-6.1); WHITE BLOOD COUNT 4.25 K/uL (4.8-10.8)
[2016-03-06 07:31] VITALS: BP 133/86; PULSE 102; TEMP 36.4; O2SAT 95
[2016-03-06] MEDS: MoRPHine SULFATE CR 15 MG TAB (MS CONTIN) PO SCH ×2 (08:00→20:32)
--- NOTE | 2016-03-06 08:14 | HEME/ONC PROGRESS NOTE ---
DATE: 03/06/2016 DIAGNOSES: 1. Intractable nausea and vomiting. 2. Metastatic cholangiocarcinoma. 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 He was admitted to [facility] yesterday after developing intractable nausea and vomiting. He had recently finished his first course of FOLFOX chemotherapy. Within 24 hours after pump removal, he began to experience significant nausea with vomiting. Clinically doing a bit better today. He has been eating, also reports moving his bowels. Nursing reports Mr. Friedman has considered possibly discontinuing further chemotherapy. We will engage in conversation regarding this issue once he is medically stable. PHYSICAL EXAMINATION: GENERAL: He is in no acute distress. He is appropriate and conversant. VITAL SIGNS: Temperature 36.4, pulse 102, respirations 18, blood pressure 133/86. SKIN: Without rash or lesion. HEENT: Oral mucosa without erythema or ulceration. NECK: Supple. HEART: Regular rate and rhythm. LUNGS: Clear to auscultation. ABDOMEN: Soft, nontender, nondistended. EXTREMITIES: No clubbing, cyanosis or edema. NEUROLOGIC: Grossly intact. LABORATORY DATA: WBC count 4250, hemoglobin 12.4, platelet count 25,000. Sodium 140, potassium 3.5, chloride 104, carbon dioxide 26, BUN 15, creatinine 1.1. LFTs otherwise unremarkable. IMPRESSION: 1. Intractable nausea and vomiting. 2. Metastatic cholangiocarcinoma. 3. Thrombocytopenia secondary to chemotherapeutic effect. PLAN: Mr. Friedman is on hospital day 2. With IV antiemetics, pain management and IV hydration, seems to be doing much better. I briefly discussed the possibility if he wants to continue chemotherapy, dose modification would be appropriate. Nurses reported Mr. Friedman had commented that he may discontinue chemotherapy. We will reconvene with Naren as an outpatient, and if that is what he decides to do, we will ensure he receives appropriate supportive care. I agree with current medical management and have nothing further to add at this juncture. If his platelet count falls below 15,000, transfusion would be warranted. Thank you for assisting me in the care of this very pleasant gentleman. [facility]
[2016-03-06 11:31] VITALS: BP 145/91; PULSE 92; TEMP 36.4; O2SAT 95
[2016-03-06] MEDS: OXYCODONE HCL IR 5 MG TAB (IMMEDIATE RELEASE) PO PRN ×3 (12:17→20:32)
--- NOTE | 2016-03-06 13:17 | Progress Note ---
Subjective Date of Service: Mar 06, 2016. 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 Gemcitabine/cisplatin chemotherapy - last cycle - 08/05/2015 2. Craniotomy - 04/2015 (Dr. Webb) - for calvarial metastatic disease Status: Acute (5) Metastatic cancer Status: Acute (6) Vomiting Status: Acute Review of Systems Constitutional: + fatigue, + weakness Abdomen: + nausea, + pain, + vomiting All Other Systems: Reviewed and Negative Medications Current Inpatient Medications Medications (Trade) Dose Ordered Sig/Aleah Route Start Time Stop Time Status Last Admin Dose Admin Zolpidem Tartrate (Ambien Tab) 5 mg HSZ PRN PO 03/04/16 14:45 04/03/16 14:44 Allopurinol (Zyloprim Tab) 300 mg QAM PO 03/05/16 08:00 04/04/16 08:59 03/06/16 07:10 300 MG Cetirizine HCl (zyrTEC TAB) 10 mg QAM PO 03/05/16 08:00 04/04/16 08:59 03/06/16 07:10 10 MG Oxycodone HCl (Roxicodone Immediate Rel Tab) 10 mg Q4H PRN PO 03/04/16 14:45 03/18/16 14:44 03/06/16 12:17 10 MG Pantoprazole Sodium (Protonix Tab) 40 mg QAM PO 03/05/16 08:00 04/04/16 08:59 03/06/16 07:10 40 MG Morphine Sulfate (Oramorph Sr Tab) 30 mg Q12 PO 03/04/16 21:00 03/18/16 20:59 03/06/16 08:00 30 MG Ondansetron HCl (Zofran Inj) 4 mg Q6H PRN IV 03/04/16 14:45 04/03/16 14:44 03/06/16 13:12 4 MG Diphenhydramine HCl (Benadryl Inj) 25 mg Q4H PRN IV 03/04/16 14:45 04/03/16 14:44 Diphenhydramine HCl (Benadryl Inj) 50 mg Q6H PRN IV 03/04/16 14:45 04/03/16 14:44 Lorazepam (Ativan Inj) 0.5 mg Q4H PRN IV 03/04/16 14:45 04/03/16 14:44 Lorazepam (Ativan Inj) 1 mg Q4H PRN IV 03/04/16 14:45 04/03/16 14:44 03/06/16 01:18 1 MG Hydromorphone HCl (Dilaudid Inj) 1 mg Q2H PRN IV 03/04/16 14:45 03/18/16 14:44 03/06/16 13:11 1 MG Hydromorphone HCl 0.5 mg 0.5 mg Q2H PRN IV 03/04/16 14:45 03/18/16 14:44 03/04/16 17:19 0.5 MG Promethazine HCl/ Sodium Chloride (Phenergan Inj/ Nss 50ml) 51 ml @ 204 mls/hr Q6H PRN IV 03/04/16 14:45 04/03/16 14:44 03/05/16 19:24 204 MLS/HR Heparin Sodium (Porcine) (Heparin 100 Unit/ml 5ml Flush) 5 ml PRN PRN IV 03/04/16 21:45 04/03/16 21:44 03/06/16 07:10 5 ML Objective Vital Signs Date Time Temp Pulse Resp B/P Pulse Ox O2 Delivery O2 Flow Rate FiO2 03/06/16 11:31 36.4 92 18 145/91 95 Room Air 03/06/16 07:45 Room Air 03/06/16 07:31 36.4 102 18 133/86 95 Room Air 03/06/16 04:52 36.5 95 20 134/89 95 Room Air 03/06/16 00:15 Room Air 03/05/16 23:37 36.5 97 18 125/80 93 Room Air 03/05/16 19:42 36.9 91 20 114/70 95 Room Air 03/05/16 19:15 Room Air 03/05/16 15:54 Room Air 03/05/16 15:00 36.7 90 16 135/89 95 Room Air Physical Exam General Appearance: no apparent distress, + obese Neck: supple, no adenopathy, no JVD, trachea midline Respiratory/Chest: chest non-tender, lungs clear, normal breath sounds, no respiratory distress, no accessory muscle use Cardiovascular: regular rate, rhythm, no edema, no gallop, no JVD, no murmur Abdomen: normal bowel sounds, soft, no organomegaly, + tenderness (right sided) Extremities: normal range of motion, non-tender, normal inspection, no pedal edema, no calf tenderness 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, no motor/sensory deficits, alert, normal mood/affect, oriented x 3 Skin: normal color, warm/dry, no rash Lymphatic: no adenopathy Laboratory Results Last 24 Hours Test 03/06/16 05:12 White Blood Count 4.25 K/uL Red Blood Count 4.13 M/uL Hemoglobin 12.4 g/dL Hematocrit 38.1 % Mean Corpuscular Volume 92.3 fL Mean Corpuscular Hemoglobin 30.0 pg Mean Corpuscular Hemoglobin Concent 32.5 g/dl Platelet Count 25 K/uL Neutrophils (%) (Auto) 60.3 % Lymphocytes (%) (Auto) 27.3 % Monocytes (%) (Auto) 8.7 % Eosinophils (%) (Auto) 3.5 % Basophils (%) (Auto) 0.0 % Neutrophils # (Auto) 2.56 K/uL Lymphocytes # (Auto) 1.16 K/uL Monocytes # (Auto) 0.37 K/uL Eosinophils # (Auto) 0.15 K/uL Basophils # (Auto) 0.00 K/uL RDW Standard Deviation 50.5 fL RDW Coefficient of Variation 14.8 % Immature Granulocyte % (Auto) 0.2 % Immature Granulocyte # (Auto) 0.01 K/uL Prothrombin Time 12.1 SECONDS Prothromb Time International Ratio 1.1 Activated Partial Thromboplast Time 32.2 SECONDS Partial Thromboplastin Ratio 1.2 Sodium Level 140 mmol/L Potassium Level 3.5 mmol/L Chloride Level 104 mmol/L Carbon Dioxide Level 26 mmol/L Anion Gap 10.0 mmol/L Blood Urea Nitrogen 15 mg/dl Creatinine 1.10 mg/dl Est Creatinine Clear Calc Drug Dose 81.4 ml/min Estimated GFR () 81.2 Estimated GFR (Non- 70.1 BUN/Creatinine Ratio 13.3 Random Glucose 95 mg/dl Calcium Level 8.7 mg/dl Magnesium Level 1.8 mg/dl Total Bilirubin 0.9 mg/dl Direct Bilirubin 0.4 mg/dl Aspartate Amino Transf (AST/SGOT) 32 U/L Alanine Aminotransferase (ALT/SGPT) 24 U/L Alkaline Phosphatase 96 U/L Total Protein 6.9 gm/dl Albumin 3.1 gm/dl Assessment and Plan Nausea and vomiting secondary to recent chemotherapy: completed 48 hour infusion of chemotherapy 48 hours prior to admission continue fluids, anti-emetics, look for diet to improve slowly will follow up with oncology to discuss further role of chemotherapy as outpatient, currently considering stopping treatment Thrombocytopenia--chronic, due to liver cancer and chemotherapy, transfuse if < 15k Anemia secondary to bone marrow suppression from chemo: Hb is stable, no signs of bleeding Gout--continue allopurinol 300 mg by mouth every morning. GERD--continue pantoprazole 40 mg by mouth every morning. Pain management--continue MS Contin 30 mg by mouth every 12 hours, increase oxycodone IR when necessary from 5-10 mg by mouth every 4 hours when necessary, and have available Dilaudid 0.5-1 mg IV every 2 hours when necessary breakthrough pain. Allergy--continue cetirizine 10 mg by mouth daily. Pleural effusion history requiring Pleurx catheter--chest x-ray reveals only a small right pleural effusion at this time. Plan: still requiring IV pain and nausea control, will reassess tomorrow and hopefully d/c home
[2016-03-06 15:35] VITALS: BP 106/77; PULSE 82; TEMP 36.6; O2SAT 95
[2016-03-06 19:59] VITALS: BP 112/76; PULSE 90; TEMP 36.6; O2SAT 93
[2016-03-06 23:37] VITALS: BP 120/73; PULSE 84; TEMP 36.5; O2SAT 92
[2016-03-07 04:26] VITALS: BP 133/83; PULSE 79; TEMP 36.3; O2SAT 93
[2016-03-07 06:59] LABS: INR 1.1 (0.9-1.1); PARTIAL THROMBOPLASTIN RATIO 1.2; PROTHROMBIN TIME (PATIENT) 12.1 SECONDS (9.0-12.0)
[2016-03-07 07:07] LABS: BUN/CREATININE RATIO 13.3 (10-20); CALCIUM 9.1 mg/dl (8.5-10.1); CREATININE 1.1 mg/dl (0.60-1.40); MAGNESIUM 1.8 mg/dl (1.8-2.4); POTASSIUM 3.4 mmol/L (3.5-5.1)
[2016-03-07 07:16] LABS: MEAN CORPUSCULAR HGB CONC 33.2 g/dl (32-36); PLATELET COUNT 20 K/uL (130-400)
[2016-03-07 07:17] LABS: BASO % 0.2 %; BASO ABS # 0.01 K/uL (0-0.2); COMPLETE YES; EOS % 2.5 %; HEMATOCRIT 36.4 % (42-52); IG% 0.6 %; LYMPH ABS # 1.26 K/uL (1.2-3.4); MEAN CELL VOLUME 93.1 fL (80-100); MEAN CORPUSCULAR HEMOGLOBIN 30.9 pg (25-34); MONO % 10.1 %; NEUT % 62.6 %; PLT ESTIMATE SIGNIFIC DECREASED; RED BLOOD COUNT 3.91 M/uL (4.7-6.1); TEAR DROP CELLS 1+; WHITE BLOOD COUNT 5.25 K/uL (4.8-10.8)
[2016-03-07 07:32] VITALS: BP 114/79; PULSE 90; TEMP 36.3; O2SAT 94
[2016-03-07] MEDS: PANTOprazole SOD 40 MG TAB PO SCH (08:09)
[2016-03-07] MEDS: CETIRIZINE HCL 10 MG TAB PO SCH (08:09)
[2016-03-07] MEDS: ALLOPURINOL 300 MG TAB PO SCH (08:09)
[2016-03-07] MEDS: ONDANSETRON INJ 2 MG/ML 2 ML VIAL IV PRN ×2 (08:13→16:41)
[2016-03-07] MEDS: MoRPHine SULFATE CR 15 MG TAB (MS CONTIN) PO SCH ×2 (08:13→21:36)
--- NOTE | 2016-03-07 08:13 | HEME/ONC PROGRESS NOTE ---
DATE: 03/07/2016 DIAGNOSES: 1. Intractable nausea and vomiting. 2. Metastatic cholangiocarcinoma. HOSPITAL COURSE: Naren is a pleasant unfortunate 65-year-old gentleman with a history of metastatic cholangiocarcinoma including TRANSVERSE ABDOMINAL MUSCLE NURSE involvement, admitted to [facility] approximately 48 hours ago. He had recently finished up his first course of FOLFOX, devoid of oxaliplatin. Shortly after a pump removal (high dose 5-FU), developed nausea and vomiting. Clinically, he is much better today, tolerating diet, absent of nausea. He is ambulating ad samantha. Nursing reports no difficulties overnight. PHYSICAL EXAMINATION: GENERAL: Mr. Friedman is in no acute distress, appropriate and conversant. VITAL SIGNS: Temperature 36.3, pulse 90, respirations 18, and blood pressure 114/79. SKIN: Without rash or lesion. HEENT: Oral mucosa without erythema or ulceration. NECK: Supple. HEART: Regular rate and rhythm. LUNGS: Clear to auscultation bilaterally. ABDOMEN: Soft, nontender, and nondistended. No rigidity or guarding. EXTREMITIES: No clubbing, cyanosis or edema. NEUROLOGIC: Grossly intact. LABORATORY DATA: WBC count 5250, hemoglobin 12.1, and platelet count 20,000. Chemistries: Sodium 141, potassium 3.4, chloride 104, carbon dioxide 26, creatinine 1.1, and BUN 15. IMPRESSION: 1. Intractable nausea and vomiting. 2. Metastatic cholangiocarcinoma. 3. Thrombocytopenia, most likely due to chemotherapeutic effect. PLAN: Mr. Friedman is now on hospital day 3. Clinically, doing much better. Will need to continue monitoring platelets, which can be done as an outpatient. Would recommend daily counts if he is discharged over the next couple of days. There is no external evidence of hemorrhage and therefore, would hold off on platelet transfusion presently. I had a brief discussion with Mr. Friedman regarding continuation of chemotherapy. I advised him that dose adjustments will most likely need to be made, not only because of this intolerance, but also taken in the fact that cytopenias may be prohibitive for an aggressive approach. Again, he has a scheduled followup and we will discuss this further at that time. I agree with his current medical management and see no reason why he cannot be discharged in the next 24 hours. Thank you again for assisting us in the care of this very pleasant gentleman. [facility]ISCH HOSPITALMiriam
[2016-03-07 08:30] VITALS: O2SAT 94
[2016-03-07 11:22] VITALS: BP 133/85; PULSE 92; TEMP 36.7; O2SAT 95
[2016-03-07] MEDS: OXYCODONE HCL IR 5 MG TAB (IMMEDIATE RELEASE) PO PRN (11:28)
[2016-03-07] MEDS: PROMETHAZINE HCL INJ 25 MG in SODIUM CHLORIDE 0.9% 50ML 50 ML IV PRN (12:43)
[2016-03-07 14:37] VITALS: BP 136/86; PULSE 91; TEMP 36.5; O2SAT 95
--- NOTE | 2016-03-07 16:13 | Progress Note ---
Subjective Date of Service: Mar 07, 2016. Subjective Pt evaluation today including: conversation w/ patient, physical exam, lab review, conversation w/ production consultant Pain: 7 out of 10 RUQ pain PO Intake: improving Voiding: no voiding problems still with abdominal pain but nausea resolved, eating well discussed pain control prior to admission, he was d/c on Morphine continuous 60mg TID which he was tolerating in the hospital prior to d/c he followed up with Dr. Noble, c/o lethargy and weakness, they decreased the MS contin back to 30mg BID will increase frequency to TID, continue dose at 30mg, continue OxyIR 10mg for breakthrough Dr. 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 Gemcitabine/cisplatin chemotherapy - last cycle - 08/05/2015 2. Craniotomy - 04/2015 (Dr. Webb) - for calvarial metastatic disease Status: Acute (5) Metastatic cancer Status: Acute (6) Vomiting Status: Acute Review of Systems Abdomen: + pain All Other Systems: Reviewed and Negative Medications Current Inpatient Medications Medications (Trade) Dose Ordered Sig/Aleah Route Start Time Stop Time Status Last Admin Dose Admin Zolpidem Tartrate (Ambien Tab) 5 mg HSZ PRN PO 03/04/16 14:45 04/03/16 14:44 Allopurinol (Zyloprim Tab) 300 mg QAM PO 03/05/16 08:00 04/04/16 08:59 03/07/16 08:09 300 MG Cetirizine HCl (zyrTEC TAB) 10 mg QAM PO 03/05/16 08:00 04/04/16 08:59 03/07/16 08:09 10 MG Oxycodone HCl (Roxicodone Immediate Rel Tab) 10 mg Q4H PRN PO 03/04/16 14:45 03/18/16 14:44 03/07/16 11:28 10 MG Pantoprazole Sodium (Protonix Tab) 40 mg QAM PO 03/05/16 08:00 04/04/16 08:59 03/07/16 08:09 40 MG Morphine Sulfate (Oramorph Sr Tab) 30 mg Q12 PO 03/04/16 21:00 03/18/16 20:59 03/07/16 08:13 30 MG Ondansetron HCl (Zofran Inj) 4 mg Q6H PRN IV 03/04/16 14:45 04/03/16 14:44 03/07/16 08:13 4 MG Diphenhydramine HCl (Benadryl Inj) 25 mg Q4H PRN IV 03/04/16 14:45 04/03/16 14:44 Diphenhydramine HCl (Benadryl Inj) 50 mg Q6H PRN IV 03/04/16 14:45 04/03/16 14:44 Lorazepam (Ativan Inj) 0.5 mg Q4H PRN IV 03/04/16 14:45 04/03/16 14:44 Lorazepam (Ativan Inj) 1 mg Q4H PRN IV 03/04/16 14:45 04/03/16 14:44 03/06/16 01:18 1 MG Hydromorphone HCl (Dilaudid Inj) 1 mg Q2H PRN IV 03/04/16 14:45 03/18/16 14:44 03/06/16 18:44 1 MG Hydromorphone HCl 0.5 mg 0.5 mg Q2H PRN IV 03/04/16 14:45 03/18/16 14:44 03/04/16 17:19 0.5 MG Promethazine HCl/ Sodium Chloride (Phenergan Inj/ Nss 50ml) 51 ml @ 204 mls/hr Q6H PRN IV 03/04/16 14:45 04/03/16 14:44 03/07/16 12:43 204 MLS/HR Heparin Sodium (Porcine) (Heparin 100 Unit/ml 5ml Flush) 5 ml PRN PRN IV 03/04/16 21:45 04/03/16 21:44 03/07/16 08:14 5 ML Objective Vital Signs Date Time Temp Pulse Resp B/P Pulse Ox O2 Delivery O2 Flow Rate FiO2 03/07/16 14:37 36.5 91 18 136/86 95 Room Air 03/07/16 11:22 36.7 92 18 133/85 95 Room Air 03/07/16 08:30 94 Room Air 03/07/16 07:32 36.3 90 18 114/79 94 Room Air 03/07/16 04:26 36.3 79 20 133/83 93 Room Air 03/07/16 00:20 Room Air 03/06/16 23:37 36.5 84 16 120/73 92 Room Air 03/06/16 19:59 36.6 90 16 112/76 93 Room Air 03/06/16 19:40 Room Air Physical Exam General Appearance: no apparent distress, + obese Neck: supple, no adenopathy, no JVD, trachea midline Respiratory/Chest: chest non-tender, lungs clear, normal breath sounds, no respiratory distress, no accessory muscle use Cardiovascular: regular rate, rhythm, no edema, no gallop, no JVD, no murmur Abdomen: normal bowel sounds, non tender, soft, no organomegaly Extremities: normal range of motion, non-tender, normal inspection, no pedal edema, no calf tenderness 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, no motor/sensory deficits, alert, normal mood/affect, oriented x 3 Skin: normal color, warm/dry, no rash Lymphatic: no adenopathy Laboratory Results Last 24 Hours Test 03/07/16 05:40 White Blood Count 5.25 K/uL Red Blood Count 3.91 M/uL Hemoglobin 12.1 g/dL Hematocrit 36.4 % Mean Corpuscular Volume 93.1 fL Mean Corpuscular Hemoglobin 30.9 pg Mean Corpuscular Hemoglobin Concent 33.2 g/dl Platelet Count 20 K/uL Neutrophils (%) (Auto) 62.6 % Lymphocytes (%) (Auto) 24.0 % Monocytes (%) (Auto) 10.1 % Eosinophils (%) (Auto) 2.5 % Basophils (%) (Auto) 0.2 % Neutrophils # (Auto) 3.29 K/uL Lymphocytes # (Auto) 1.26 K/uL Monocytes # (Auto) 0.53 K/uL Eosinophils # (Auto) 0.13 K/uL Basophils # (Auto) 0.01 K/uL Immature Granulocyte % (Auto) 0.6 % Immature Granulocyte # (Auto) 0.03 K/uL Platelet Estimate SIGNIFIC DECREASED Tear Drop Cells 1+ Prothrombin Time 12.1 SECONDS Prothromb Time International Ratio 1.1 Activated Partial Thromboplast Time 30.8 SECONDS Partial Thromboplastin Ratio 1.2 Sodium Level 141 mmol/L Potassium Level 3.4 mmol/L Chloride Level 104 mmol/L Carbon Dioxide Level 26 mmol/L Anion Gap 11.0 mmol/L Blood Urea Nitrogen 15 mg/dl Creatinine 1.10 mg/dl Est Creatinine Clear Calc Drug Dose 81.4 ml/min Estimated GFR () 81.2 Estimated GFR (Non- 70.1 BUN/Creatinine Ratio 13.3 Random Glucose 98 mg/dl Calcium Level 9.1 mg/dl Magnesium Level 1.8 mg/dl Total Bilirubin 0.7 mg/dl Direct Bilirubin 0.3 mg/dl Aspartate Amino Transf (AST/SGOT) 38 U/L Alanine Aminotransferase (ALT/SGPT) 25 U/L Alkaline Phosphatase 108 U/L Total Protein 6.9 gm/dl Albumin 3.0 gm/dl Assessment and Plan Nausea and vomiting secondary to recent chemotherapy: completed 48 hour infusion of chemotherapy 48 hours prior to admission continue fluids, anti-emetics, diet is improving, stop fluids will follow up with oncology to discuss further role of chemotherapy as outpatient, currently considering stopping treatment has a f/u appointment in one week with Dr. Noble Thrombocytopenia--chronic, due to liver cancer and chemotherapy, transfuse if < 15k, it is 20k today Anemia secondary to bone marrow suppression from chemo: Hb is stable, no signs of bleeding Gout--continue allopurinol 300 mg by mouth every morning. GERD--continue pantoprazole 40 mg by mouth every morning. Pain management--increase MS Contin 30 mg by mouth to every 8 hours, increase oxycodone IR when necessary from 5-10 mg by mouth every 4 hours when necessary, and have available Dilaudid 0.5-1 mg IV every 2 hours when necessary breakthrough pain. Allergy--continue cetirizine 10 mg by mouth daily. Pleural effusion history requiring Pleurx catheter--chest x-ray reveals only a small right pleural effusion at this time. Plan: increase MS Contin frequency to q8, continue OxyIR 10mg, try to avoid Dilaudid, explained that pain is due to metastatic cancer
[2016-03-07 19:20] VITALS: BP 114/75; PULSE 100; TEMP 36.3; O2SAT 93
[2016-03-08 00:06] VITALS: BP 146/92; PULSE 90; TEMP 36.7; O2SAT 96
[2016-03-08] MEDS: OXYCODONE HCL IR 5 MG TAB (IMMEDIATE RELEASE) PO PRN ×3 (03:23→17:09)
[2016-03-08 04:21] VITALS: BP 123/79; PULSE 78; TEMP 36.4; O2SAT 93
[2016-03-08 06:32] LABS: MEAN CORPUSCULAR HGB CONC 33.7 g/dl (32-36); PLATELET COUNT 22 K/uL (130-400)
[2016-03-08 06:33] LABS: BASO % 0.2 %; BASO ABS # 0.01 K/uL (0-0.2); COMPLETE YES; EOS % 1.8 %; HEMATOCRIT 34.4 % (42-52); IG% 0.4 %; LYMPH % 22.2 %; LYMPH ABS # 1.14 K/uL (1.2-3.4); MEAN CELL VOLUME 92.2 fL (80-100); MEAN CORPUSCULAR HEMOGLOBIN 31.1 pg (25-34); MONO % 9.7 %; NEUT % 65.7 %; PLT ESTIMATE SIGNIFIC DECREASED; RED BLOOD COUNT 3.73 M/uL (4.7-6.1); TEAR DROP CELLS 1+; WHITE BLOOD COUNT 5.14 K/uL (4.8-10.8)
[2016-03-08 07:11] VITALS: BMI 33.5
[2016-03-08 07:45] VITALS: BP 121/82; PULSE 90; TEMP 36.4; O2SAT 96
[2016-03-08] MEDS: ONDANSETRON INJ 2 MG/ML 2 ML VIAL IV PRN (07:45)
[2016-03-08] MEDS: PANTOprazole SOD 40 MG TAB PO SCH (09:11)
[2016-03-08] MEDS: CETIRIZINE HCL 10 MG TAB PO SCH (09:11)
[2016-03-08] MEDS: ALLOPURINOL 300 MG TAB PO SCH (09:11)
[2016-03-08] MEDS: MoRPHine SULFATE CR 15 MG TAB (MS CONTIN) PO SCH ×2 (09:12→21:16)
[2016-03-08] MEDS: HYDROmorphone INJ 1 MG/ML SYR IV PRN (09:13)
--- NOTE | 2016-03-08 14:37 | Progress Note ---
Subjective Date of Service: Mar 08, 2016. Subjective Pt evaluation today including: conversation w/ patient, physical exam, lab review, review of inpatient medication list Pain: RUQ pain, worse today, had a bad night PO Intake: poor, ate some oatmeal for breakfast Voiding: no voiding problems patient required Dilaudid IV this morning, first time in 48 hours, felt we were making progress but had a bad night discussed increasing MS Contin to 45mg BID, he agreed, using Roxicodone PRN still eating very little, no vomiting for several days Problem List Medical Problems: (1) Abdominal pain Status: Acute (2) Anemia Status: Acute (3) Brain lesion Status: Acute (4) Metastatic adenocarcinoma Permanent Comment: DIAGNOSIS: 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 Gemcitabine/cisplatin chemotherapy - last cycle - 08/05/2015 2. Craniotomy - 04/2015 (Dr. Webb) - for calvarial metastatic disease Status: Acute (5) Metastatic cancer Status: Acute (6) Vomiting Status: Acute Review of Systems Constitutional: + fatigue, + weakness Abdomen: + pain (RUQ), + problem reported (anorexia) All Other Systems: Reviewed and Negative Medications Current Inpatient Medications Medications (Trade) Dose Ordered Sig/Aleah Route Start Time Stop Time Status Last Admin Dose Admin Zolpidem Tartrate (Ambien Tab) 5 mg HSZ PRN PO 03/04/16 14:45 04/03/16 14:44 Allopurinol (Zyloprim Tab) 300 mg QAM PO 03/05/16 08:00 04/04/16 08:59 03/08/16 09:11 300 MG Cetirizine HCl (zyrTEC TAB) 10 mg QAM PO 03/05/16 08:00 04/04/16 08:59 03/08/16 09:11 10 MG Oxycodone HCl (Roxicodone Immediate Rel Tab) 10 mg Q4H PRN PO 03/04/16 14:45 03/18/16 14:44 03/08/16 07:46 10 MG Pantoprazole Sodium (Protonix Tab) 40 mg QAM PO 03/05/16 08:00 04/04/16 08:59 03/08/16 09:11 40 MG Ondansetron HCl (Zofran Inj) 4 mg Q6H PRN IV 03/04/16 14:45 04/03/16 14:44 03/08/16 07:45 4 MG Diphenhydramine HCl (Benadryl Inj) 25 mg Q4H PRN IV 03/04/16 14:45 04/03/16 14:44 Diphenhydramine HCl (Benadryl Inj) 50 mg Q6H PRN IV 03/04/16 14:45 04/03/16 14:44 Lorazepam (Ativan Inj) 0.5 mg Q4H PRN IV 03/04/16 14:45 04/03/16 14:44 Lorazepam (Ativan Inj) 1 mg Q4H PRN IV 03/04/16 14:45 04/03/16 14:44 03/06/16 01:18 1 MG Hydromorphone HCl (Dilaudid Inj) 1 mg Q2H PRN IV 03/04/16 14:45 03/18/16 14:44 03/08/16 09:13 1 MG Hydromorphone HCl 0.5 mg 0.5 mg Q2H PRN IV 03/04/16 14:45 03/18/16 14:44 03/04/16 17:19 0.5 MG Promethazine HCl/ Sodium Chloride (Phenergan Inj/ Nss 50ml) 51 ml @ 204 mls/hr Q6H PRN IV 03/04/16 14:45 04/03/16 14:44 03/07/16 12:43 204 MLS/HR Heparin Sodium (Porcine) (Heparin 100 Unit/ml 5ml Flush) 5 ml PRN PRN IV 03/04/16 21:45 04/03/16 21:44 03/08/16 05:32 5 ML Morphine Sulfate (Oramorph Sr Tab) 45 mg Q12 PO 03/08/16 09:00 03/22/16 08:59 03/08/16 09:12 45 MG Objective Vital Signs Date Time Temp Pulse Resp B/P Pulse Ox O2 Delivery O2 Flow Rate FiO2 03/08/16 07:45 36.4 90 18 121/82 96 Room Air 03/08/16 07:45 Room Air 03/08/16 04:21 36.4 78 18 123/79 93 Room Air 03/08/16 00:06 36.7 90 18 146/92 96 Room Air 03/08/16 00:00 Room Air 03/07/16 20:00 Room Air 03/07/16 19:20 36.3 100 20 114/75 93 Room Air 03/07/16 16:00 Room Air 03/07/16 14:37 36.5 91 18 136/86 95 Room Air Physical Exam General Appearance: no apparent distress, + obese Neck: supple, no adenopathy, no JVD, trachea midline Respiratory/Chest: chest non-tender, lungs clear, normal breath sounds, no respiratory distress, no accessory muscle use Cardiovascular: regular rate, rhythm, no edema, no gallop, no JVD, no murmur Abdomen: normal bowel sounds, non tender, soft, no organomegaly Extremities: normal range of motion, non-tender, normal inspection, no pedal edema, no calf tenderness 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, no motor/sensory deficits, alert, normal mood/affect, oriented x 3 Skin: normal color, warm/dry, no rash Lymphatic: no adenopathy Laboratory Results Last 24 Hours Test 03/08/16 05:03 White Blood Count 5.14 K/uL Red Blood Count 3.73 M/uL Hemoglobin 11.6 g/dL Hematocrit 34.4 % Mean Corpuscular Volume 92.2 fL Mean Corpuscular Hemoglobin 31.1 pg Mean Corpuscular Hemoglobin Concent 33.7 g/dl Platelet Count 22 K/uL Neutrophils (%) (Auto) 65.7 % Lymphocytes (%) (Auto) 22.2 % Monocytes (%) (Auto) 9.7 % Eosinophils (%) (Auto) 1.8 % Basophils (%) (Auto) 0.2 % Neutrophils # (Auto) 3.38 K/uL Lymphocytes # (Auto) 1.14 K/uL Monocytes # (Auto) 0.50 K/uL Eosinophils # (Auto) 0.09 K/uL Basophils # (Auto) 0.01 K/uL RDW Standard Deviation 49.6 fL RDW Coefficient of Variation 14.7 % Immature Granulocyte % (Auto) 0.4 % Immature Granulocyte # (Auto) 0.02 K/uL Platelet Estimate SIGNIFIC DECREASED Tear Drop Cells 1+ Assessment and Plan Nausea and vomiting secondary to recent chemotherapy: completed 48 hour infusion of chemotherapy 48 hours prior to admission stopped fluids, no anti-emetics required, eating poorly though, little appetite will follow up with oncology to discuss further role of chemotherapy as outpatient, currently considering stopping treatment has a f/u appointment in one week with Dr. Noble Thrombocytopenia--chronic, due to liver cancer and chemotherapy, transfuse if < 15k, it is 22k today Anemia secondary to bone marrow suppression from chemo: Hb is stable, no signs of bleeding Gout--continue allopurinol 300 mg by mouth every morning. GERD--continue pantoprazole 40 mg by mouth every morning. Pain management--increase MS Contin 45 mg by mouth to every 12 hours, increase oxycodone IR when necessary from 5-10 mg by mouth every 4 hours when necessary, and have available Dilaudid 0.5-1 mg IV every 2 hours when necessary breakthrough pain. required Dilaudid IV this morning, patient reluctant to leave today, plan to d/c tomorrow Allergy--continue cetirizine 10 mg by mouth daily. Pleural effusion history requiring Pleurx catheter--chest x-ray reveals only a small right pleural effusion at this time. Plan: increase MS Contin, continue OxyIR 10mg, try to avoid Dilaudid, explained that pain is due to metastatic cancer
[2016-03-08 15:44] VITALS: BP 132/86; PULSE 82; TEMP 36.3; O2SAT 95
[2016-03-08] MEDS: HYDROmorphone INJ 0.5 MG/0.5 ML SYR IV PRN (17:08)
[2016-03-08 20:00] VITALS: BP 113/72; PULSE 81; TEMP 36.5; O2SAT 94
[2016-03-08 23:10] VITALS: BP 95/66; PULSE 74; TEMP 36.5; O2SAT 96
[2016-03-09 06:10] VITALS: BP 117/75; PULSE 75; TEMP 36.4; O2SAT 95
[2016-03-09 06:11] VITALS: Ht 177.8 cm; Wt 105.6 kg
[2016-03-09] MEDS: OXYCODONE HCL IR 5 MG TAB (IMMEDIATE RELEASE) PO PRN ×3 (06:38→14:29)
[2016-03-09] MEDS: MoRPHine SULFATE CR 15 MG TAB (MS CONTIN) PO SCH (08:00)
[2016-03-09] MEDS: CETIRIZINE HCL 10 MG TAB PO SCH (08:01)
[2016-03-09] MEDS: ALLOPURINOL 300 MG TAB PO SCH (08:01)
[2016-03-09] MEDS: PANTOprazole SOD 40 MG TAB PO SCH (08:01)
[2016-03-09 08:02] VITALS: BP 125/81; PULSE 74; TEMP 36.4; O2SAT 95
--- NOTE | 2016-03-09 08:16 | HEME/ONC PROGRESS NOTE ---
DATE: 03/09/2016 DIAGNOSES: 1. Intractable nausea and vomiting. 2. Metastatic cholangiocarcinoma. HOSPITAL COURSE: Naren was seen and examined at bedside this morning. He suffers from metastatic cholangiocarcinoma including central nervous system involvement. He was admitted to [facility] 4 days ago. He recently finished up his first course of FOLFOX, devoid of oxaliplatin. Shortly after completing high dose 5-FU by pump, developed nausea and vomiting. He is doing much better today, ambulating ad samantha, moving his bowels regularly and tolerating diet. He is pending discharge today. Mr. Friedman is scheduled for a followup in my office later this week. PHYSICAL EXAMINATION: GENERAL: Naren is in no acute distress. VITAL SIGNS: Temperature 36.4, pulse 75, respirations 18, and blood pressure 117/75. SKIN: Without rash or lesion. HEENT: Oral mucosa without erythema or ulceration. NECK: Supple. HEART: Regular rate and rhythm. LUNGS: Clear. ABDOMEN: Soft, nontender, and nondistended. EXTREMITIES: No clubbing, cyanosis or edema. NEUROLOGIC: Grossly intact. LABORATORY DATA: From yesterday, WBC count 5140, hemoglobin 11.6, and platelet count 22,000. Sodium 141, potassium 3.4, chloride 104, carbon dioxide 26, BUN 15, and creatinine 1.1. Albumin slightly decreased at 3. IMPRESSION: 1. Intractable nausea and vomiting (resolved). 2. Metastatic cholangiocarcinoma. 3. Thrombocytopenia, most likely due to chemotherapeutic effect. PLAN: Mr. Friedman is on hospital day #5. Clinically, doing much better. I have no issue with continuing to monitor platelets as outpatient. He shows no external signs of hemorrhage and does not need transfused at this time. He has close followup established next week. We will check his peripheral counts at that time and discuss where we go from here therapeutically. I have nothing further to add and will officially sign off today. Thank you again for assisting us in the care of this very pleasant gentleman. EMILY
[2016-03-09] MEDS ORDERED: MRPSR15 PO (10:10)
[2016-03-09] MEDS ORDERED: OXYC1TAB3 PO (10:10)
--- NOTE | 2016-03-09 10:19 | Discharge Instructions ---
Discharge Instructions Admission Reason for Admission: Anemia,Metastatic Adenocarcinoma Discharge Discharge Diagnosis / Problem: Metastatic adenocarcinoma, intractable pain, vomiting due to chemotheray Discharge Goals Goal(s): Decrease discomfort, Specific goals (follow up with Dr. Noble to discuss further treatment options) Activity Recommendations Activity Limitations: resume your previous activity Lifting Limitations: none Exercise/Sports Limitations: as tolerated May Resume Sexual Activity: when tolerated Shower/Bathe: no limitations Driving or Machine Use: no driving due to narcotics use . Instructions / Follow-Up Instructions / Follow-Up Medications: - MORPHINE SULFATE: dose INCREASED to 45mg twice a day, you can take three 15mg tablets for this dose in the morning and evening, provides steady state pain control - ROXICODONE: dose increased from 5mg to 10mg (two tablets) every four hours for pain relief, only take as needed, if you are pain free then can go longer between doses In summary, you presented with nausea/vomiting and dehydration related to most recent chemotherapy that you received last Saturday. The effects are self limiting and you have not been vomiting for several days, appetite improving. Your pain is due to the malignancy and metastatic disease. Besides trying to improve the pain with chemotherapy (by decreasing tumor size) the best route is through narcotic pain control. While here in the hospital your dose of MS Contin was increased to 45mg twice a day and your dose of Roxicodone was increased from 5mg to 10mg. Please continue these doses and understand that you may need further dose adjustments going forward. FOLLOW UP - please keep appointment with Dr. Noble on Tuesday 03/14 to discuss further treatment options, plans going forward Current Hospital Diet Patient's current hospital diet: Regular Diet Discharge Diet Recommended Diet: Regular Diet Pending Studies Studies pending at discharge: no Laboratory Results Last Resulted CBC 03/08/16 05:03 Red Blood Count 3.73, Mean Corpuscular Volume 92.2, Mean Corpuscular Hemoglobin 31.1, Mean Corpuscular Hemoglobin Concent 33.7, Neutrophils (%) (Auto) 65.7, Lymphocytes (%) (Auto) 22.2, Monocytes (%) (Auto) 9.7, Eosinophils (%) (Auto) 1.8, Basophils (%) (Auto) 0.2, Neutrophils # (Auto) 3.38, Lymphocytes # (Auto) 1.14, Monocytes # (Auto) 0.50, Eosinophils # (Auto) 0.09, Basophils # (Auto) 0.01 Last Resulted BMP 03/07/16 05:40 Medical Emergencies . Who to Call and When: Medical Emergencies: If at any time you feel your situation is an emergency, please call 911 immediately. . Non-Emergent Contact Non-Emergency issues call your: Oncologist Call Non-Emergent contact if: your pain is worsening, your pain is concerning you, you have any medication questions . . "Provider Documentation" section prepared by Diony Feliciano. VTE Core Measure Inpt VTE Proph given/why not?: SCD's [place] Drug Monitoring Program Search Results: no issues identified
[2016-03-09 10:27] VITALS: BP 125/81; PULSE 74; TEMP 36.4; O2SAT 95
[2016-03-09 11:25] VITALS: BP 113/76
--- NOTE | 2016-03-09 15:55 | Discharge Summary ---
Discharge Summary Admission Date: Mar 04, 2016 at 14:37 Discharge Date: Mar 09, 2016 Discharge Disposition: Home Principal Diagnosis: Nause vomiting due to chemotherapy Problems/Secondary Diagnoses: Thrombocytopenia Anemia Metastatic adenocarcinoma causing pain Immunizations: Have You Had Influenza Vaccine: No History of Tetanus Vaccine?: Yes History of Pneumococcal: No History of Hepatitis B Vaccine: Yes Procedures: none Consultations: Oncology Medication Reconciliation New Medications: Morphine Sulfate (Morphine Sulfate ER) 15 Mg Tabcr 45 MG PO Q12, #180 TABS 0 Refills Changed Medications: Oxycodone Ir (Roxicodone Ir) 5 Mg Tab 10 MG PO Q4H PRN for Pain, #120 TAB 0 Refills (Changed from: 5 MG; Refills: ) Continued Medications: Allopurinol (Zyloprim) 300 Mg Tab 300 MG PO QAM, TAB Cetirizine HCl (All Day Allergy) 10 Mg Tab 10 MG PO QAM Ondansetron Hcl (Zofran) 8 Mg Tab 8 MG PO TID PRN for Nausea, TAB Pantoprazole (Protonix) 40 Mg Tab 40 MG PO QAM, TAB WILL BE GETTING A NEW MED INSURANCE WILL NOT PAY Prochlorperazine Maleate (Compazine) 10 Mg Tab 10 MG PO Q6H PRN for Nausea, TAB Discontinued Medications: Morphine Sulfate (Ms Contin) 30 Mg Tabcr 30 MG PO Q12, TAB Discharge Exam Patient feeling better today, pain is less than 5 out of 10, appears that increased dose of MS Contin is working. Discussed plans for d/c to home, he feels ready. He is eating more, no vomiting for several days. Review of Systems: Constitutional: No chills, No fatigue, No fever, No problem reported, No sweats, No weakness, No weight loss Eyes: No diplopia, No discharge, No eye pain, No problem reported, No redness, No worsening of vision ENT: No dental problems, No hearing loss, No nasal symptoms, No problem reported, No sore throat, No tinnitus, No trouble swallowing, No unusual epistaxis Respiratory: No cough, No dyspnea at rest, No dyspnea on exertion, No hemoptysis, No problem reported, No shortness of breath, No sputum, No wheezing Cardiovascular: No PND, No chest pain, No claudication, No edema, No orthopnea, No palpitations, No problem reported Abdomen: + pain, No constipation, No diarrhea, No nausea, No vomiting Musculoskeletal: No calf pain, No joint pain, No muscle pain, No problem reported, No swelling Genitourinary - Male: No dysuria, No hematuria, No urinary frequency, No urinary urgency Neurologic: No balance problems, No memory loss, No numbness/tingling, No paralysis, No problem reported, No vertigo, No weakness Psychiatric: No anhedonism, No anxiety, No depression symptoms, No insomnia , No problem reported, No substance abuse Endocrine: No excessive thirst, No excessive urination, No fatigue, No problem reported Hematologic / Lymphatic: No abnormal bleeding/bruising, No clotting problems , No night sweats, No problem reported, No swollen lymph nodes Integumentary: No bleeding, No color change, No itch, No new/changing skin lesions, No problem reported, No rash Physical Exam: General Appearance: no apparent distress, + obese Eyes: normal inspection, EOMI, sclerae normal ENT: normal ENT inspection, hearing grossly normal, pharynx normal Neck: supple, no adenopathy, no JVD, trachea midline Respiratory/Chest: chest non-tender, lungs clear, normal breath sounds, no respiratory distress, no accessory muscle use Cardiovascular: regular rate, rhythm, no edema, no gallop, no JVD, no murmur , normal peripheral pulses Abdomen / GI: normal bowel sounds, soft, no organomegaly, + tenderness (RUQ) Extremities: normal inspection, no calf tenderness, normal capillary refill , no pedal edema, normal range of motion 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 Noble (next Saturday) Thrombocytopenia--chronic, due to liver cancer and chemotherapy, transfuse if < 15k, it is 22k today Anemia secondary to bone marrow suppression from chemo: Hb is stable, no signs of bleeding Gout--continue allopurinol 300 mg by mouth every morning. GERD--continue pantoprazole 40 mg by mouth every morning. Pain management--increase MS Contin 45 mg by mouth to every 12 hours, increase oxycodone IR when necessary from 5-10 mg by mouth every 4 hours when necessary seems to be working better had a long conversation, explained that the pain is due to metastatic cancer Allergy--continue cetirizine 10 mg by mouth daily. Pleural effusion history requiring Pleurx catheter--chest x-ray reveals only a small right pleural effusion at this time. Total Time Spent: Greater than 30 minutes This includes examination of the patient, discharge planning, medication reconciliation, and communication with other providers. Discharge Instructions Please refer to the electronic Patient Visit Report (Discharge Instructions) for additional information. Follow-Up Dr. Noble in one week Dr. Lenz in two weeks Additional Copies To Travis Lenz M.D.; Maximiliano Noble D.O.
--- NOTE | 2016-03-20 20:57 | EMERGENCY ROOM VISIT NOTE ---
History First contact with patient: 11:57 Chief Complaint: VOMITING Stated Complaint: ANEMIA,METASTATIC ADENOCARCINOMA Nursing Triage Summary: Pt has been vomiting for the last couple of days. Pt states that he receives chemotherapy. Pt has not been able to keep anything down and he is unable to keep anything down. History of Present Illness The patient is a 65 year old white male who presents to the Emergency Room with complaints of intractable vomiting. He has known metastatic cancer and recently received chemotherapy. He has not been able to retain any food or fluids for the last 2 days. He complains of fatigue. No headache, fevers, chills, sweats, or diarrhea. They did call the [facility] on-call physician, but state they were unable to reach him. They decided to come to the ED for management. Patient states he has had nausea and vomiting with chemotherapy in the past. No known ill contacts. No other complaints. Review of Systems REVIEW OF SYSTEM: HEENT: No dizziness, visual problems, hearing loss, or tinnitus. There is no difficulty swallowing and no oral lesions are present. LYMPH: No adenopathy. PULMONARY: No cough, sputum production or hemoptysis. CARDIOVASCULAR: No chest pain, palpitations, or peripheral edema. GASTROINTESTINAL: No diarrhea or constipation. GENITOURINARY: No dysuria, frequency, urgency or nocturia. NEUROLOGIC: No muscle tenderness, epilepsy or history of neurological problems. No history of chronic headaches. MUSCULOSKELETAL: No history of joint tenderness/swelling. Positive history of arthritis and arthralgias. SKIN: No rashes or lesions. PSYCHIATRIC: No history of depression or mental illness. ENDOCRINE: No history of diabetes, thyroid disorders, or abnormal hair growth. Past Medical/Surgical History Medical Problems: (1) Anemia (2) ANXIETY STATE NOS (3) Arthroscopy of knee joint (4) CELLULITIS OF LEG (5) Cholangiocarcinoma (6) GOUT NOS (7) HYPERLIPIDEMIA NEC/NOS (8) HYPERTENSION NOS (9) Mass of skull (10) Metastatic adenocarcinoma (11) Pleural effusion (12) SYNCOPE AND COLLAPSE Family History Diabetes mellitus FH: heart disease FH: lung disease FHx: cancer Hypertension Social History Smoking Status: Former Smoker Smokeless Tobacco Use: No Alcohol Use: none Drug Use: none Marital Status: Housing Status: lives with family Occupation Status: retired Current/Historical Medications Scheduled Allopurinol (Zyloprim), 300 MG PO QAM Cetirizine HCl (All Day Allergy), 10 MG PO QAM Morphine Sulfate (Morphine Sulfate ER), 45 MG PO Q12 Pantoprazole (Protonix), 40 MG PO QAM Scheduled PRN Ondansetron Hcl (Zofran), 8 MG PO TID PRN for Nausea Oxycodone Ir (Roxicodone Ir), 10 MG PO Q4H PRN for Pain Prochlorperazine Maleate (Compazine), 10 MG PO Q6H PRN for Nausea Allergies Coded Allergies: Ciprofloxacin (Verified Allergy, Severe, SOB/SWELLING, 03/04/16) Sulfa Antibiotics (Verified Allergy, Severe, THROAT CLOSED WITH SULFA DRUGS, 03/04/16) Codeine (Verified Allergy, Unknown, "couldn't breath", 03/04/16) Latex1 -Allergic Contact Dermititis (Unverified Allergy, Unknown, HAD LATEX CATHETER AND HAD BURNING ITCHING, 03/04/16) Physical Exam Vital Signs Date Time Temp Pulse Resp B/P Pulse Ox O2 Delivery O2 Flow Rate FiO2 03/04/16 14:37 74 20 126/78 98 Room Air 03/04/16 11:53 36.4 85 18 188/80 98 Room Air Pain Rating (0-10): 4.0 Physical Exam Gen.: Well-developed, well-nourished, elderly white male, in no acute distress. Lying in bed. Alert and oriented. Skin:Warm and dry with good turgor. No rashes or lesions. No ecchymosis or erythema. The patient is not diaphoretic. No abrasions. HEENT: Normocephalic atraumatic. Eyes PERRLA, EOMI. No conjunctiva or scleral injection. Ears TMs intact bilaterally with good light reflexes. No erythema or bulging. No hemotympanum. Canals are patent. Nares patent bilaterally without turbinate enlargement. No significant drainage. No epistaxis. Oropharynx without erythema or exudate. Uvula midline, oral mucosa dry. No lesions present. Heart: Heart RRR. No MGR. Peripheral pulses are 2+. Lungs: Lungs are clear to auscultation. No crackles rhonchi or wheezing. Good air movement. The patient is able to take a deep breath. Abdomen: Abdomen was inspected, auscultated, and palpated. Bowel sounds present x 4. Soft, nontender to palpation. No hepato- splenomegaly. No masses noted. No rebound. No CVA tenderness. Musculoskeletal: Gross motor function of the upper and lower extremities is intact and unremarkable. Bilateral peripheral edema. Neurologic: Gross sensation is intact across the upper and lower extremities by soft touch. Medical Decision & Procedures ER Provider Diagnostic Interpretation: Chest x-ray obtained today was read by radiology as unremarkable. Small right pleural effusion and scattered metastatic pulmonary nodules are similar to previous films. Acute abdominal x-ray obtained today shows no evidence for bowel obstruction. Scattered lytic osseous lesions are again noted. Laboratory Results Test 03/04/16 12:30 Hypersegmented Polys Globulin 3.9 gm/dl (2.5-4.0) Albumin/Globulin Ratio 0.8 (0.9-2) Amylase Level 44 U/L (25-115) Lipase 95 U/L (73-393) CBC, amylase, lipase, and comprehensive metabolic panel were obtained. Patient was found to be initially severely anemic. This was eventually determined to be a lab error and his H&H were actually 12.5 and 36.7. Platelets were low at 42. Amylase and lipase were normal. AST mildly elevated at 38. ALT normal at 27. Potassium mildly low at 3.4. The rest of his chem panel is unremarkable. Medications Administered Medications (Trade) Dose Ordered Sig/Aleah Route Start Time Stop Time Status Last Admin Dose Admin Sodium Chloride (Nss 1000ml) 1,000 ml @ 200 mls/hr Q5H STAT IV 03/04/16 12:13 03/04/16 17:12 DC 03/04/16 12:13 200 MLS/HR Ondansetron HCl (Zofran Inj) 8 mg NOW STAT IV 03/04/16 12:13 03/04/16 12:20 DC 03/04/16 12:40 8 MG Morphine Sulfate (MoRPHine SULFATE INJ) 4 mg NOW STAT IV 03/04/16 12:13 03/04/16 12:20 DC 03/04/16 12:40 4 MG Diphenhydramine HCl (Benadryl Inj) 25 mg NOW STAT IV 03/04/16 13:48 03/04/16 13:55 DC 03/04/16 14:08 25 MG Ondansetron HCl (Zofran Inj) 4 mg NOW STAT IV 03/04/16 13:48 03/04/16 13:55 DC 03/04/16 14:08 4 MG Morphine 4 mg IV, Zofran 4 mg IV, Zofran 8 mg IV, Benadryl 25 mg IV, 1 L normal sterile saline at 200 mL per hour. ED Course Patient and his are educated regarding today's findings. Conservative care measures were discussed. IV was established. Labs were obtained. He was initially thought to be severely anemic. Later it was determined that this was a lab error. He was initially ordered 2 units of blood for transfusion. This did not occur as the lab value was corrected. Patient was given Zofran 8 mg IV and morphine 4 mg IV for control of his Pain, nausea, and vomiting. Pain improved. Nausea persisted. He was given additional Zofran 4 mg IV. I did speak with Dr. Xiong regarding this patient. He recommended admission if the patient was not able to retain fluids. Patient was not able to retain fluids by mouth. Hospitalist service was consulted. Please see that dictation for final management. Patient was seen in conjunction with Dr. Wynn, who also evaluated the patient and concurred with today's diagnosis and treatment plan. Medical Decision Possibility of bowel obstruction, nausea and vomiting from chemotherapy, severe anemia, and progression of his cholangiocarcinoma or metastatic adenocarcinoma was considered. Impression Primary Impression: Vomiting Additional Impression: Anemia Departure Information Dispostion Admitted as an inpatient Condition FAIR Prescriptions Morphine Sulfate (Morphine Sulfate ER) 15 Mg Tabcr 45 MG PO Q12, #180 TABS 0 Refills Prov: Diony Feliciano D.O. 03/09/16 Oxycodone Ir (Roxicodone Ir) 5 Mg Tab 10 MG PO Q4H Y for Pain, #120 TAB 0 Refills Prov: Diony Feliciano D.O. 03/09/16 Referrals Travis Lenz M.D. (PCP) Forms HOME CARE DOCUMENTATION FORM, IMPORTANT VISIT INFORMATION Patient Instructions [facility] Problem Qualifiers
== END 2016-03-09 15:20 | disposition home health service (06) | DRG 392 ==
LOC: ENRESERVDT → ENRESERVTM → C.EDB 11:46 → C.4E 14:37
PROVIDERS: ADMIT Hospitalist; ATTEND Internal Medicine
DX: R11.2 Nausea with vomiting, unspecified (principal); C22.1 Intrahepatic bile duct carcinoma; C79.31 Secondary malignant neoplasm of brain; D69.59 Other secondary thrombocytopenia; D64.81 Anemia due to antineoplastic chemotherapy; M10.9 Gout, unspecified; G89.3 Neoplasm related pain (acute) (chronic); I10 Essential (primary) hypertension; K21.9 Gastro-esophageal reflux disease without esophagitis; Z51.5 Encounter for palliative care; T45.1X5A Adverse effect of antineoplastic and immunosuppressive drugs, initial encounter; T78.40XA Allergy, unspecified, initial encounter; X58.XXXA Exposure to other specified factors, initial encounter; Z87.891 Personal history of nicotine dependence; Z83.3 Family history of diabetes mellitus; Z82.49 Family history of ischemic heart disease and other diseases of the circulatory system; Z79.899 Other long term (current) drug therapy

== ENCOUNTER 2016-03-25 10:32 | Emergency (ER) | payer OTHER ==
[~2016-03-25] VITALS: Ht 177.8 cm; Wt 103.0 kg
[~2016-03-25 10:32] MED LIST changes: -MORP30TA23 PO; +MRPSR15 PO
[2016-03-25 10:39] VITALS: TEMP 36.7; Ht 177.8 cm; Wt 103.0 kg
[2016-03-25] MEDS ORDERED: FENTANYL 50 MCG/HR TDSY TD STA (10:56)
[2016-03-25] MEDS ORDERED: FENTANYL PATCH REMOVE & WASTE SCH (11:00)
[2016-03-25] MEDS ORDERED: DRGTP25 EXT (11:19)
--- NOTE | 2016-03-25 11:20 | EMERGENCY ROOM VISIT NOTE ---
History First contact with patient: 10:36 Chief Complaint: SEIZURE Stated Complaint: Seizure Nursing Triage Summary: pt here from home via [facility] from home. states pt had a witnessed seizure x 45 seconds. upon ems arrival pt was confused, appeared to be post ictal. in route to ed pt became alert and oriented. no ativan was given to pt upon arrival pt is alert, denies any pain or headache. states does not recall event pt has liver ca with mets to brain History of Present Illness The patient is a 65 year old male who presents to the Emergency Room with complaints of seizure this morning. is accompanying she witness the seizure. Patient has no recollection of the seizure event. notes that this morning, patient was sitting in his lounge chair. She was in the kitchen preparing him food and heard a noise in other room. She went back and saw him in the chair flailing arms and legs. His eyes were rolled in joce back of his eyes and he had blood running from his mouth. This lasted approximately 1 minute after which, the patient was unresponsive and having labored breathing. She tried to rouse him but he was unresponsive. EMS was called and arrived within 10 minutes. After arrival, he was sat on the couch. Within 10-15 minutes he gradually became alert and oriented. He does vaguely recall this. notes that when EMS arrived, he was agitated and kept wanting to stand up. He required sedation, thinks it was Ativan. Current he feels he is at his baseline. 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 He was due to have a patch change this morning, but because of the seizure, this did not occur. He also takes Oxycodone PRN for pain, but did not get it this morning. Otherwise, he has not had fevers, chills or nightsweats. notes that his appetite has been good. He has not had any voiding difficulty. There is history of dysuria, frequency. He denies cough, but does say it feels difficult to take a deep breath in on his left side. He denies chest pain. Of note he has a history of metastatic cholangiocarcinoma. He has previously had chemotherapy and radiotherapy, but the plan at the moment is for symptomatic treatment only and management of pain. Review of Systems A 10 point review of systems was negative unless stated above. Past Medical/Surgical History Medical Problems: (1) Anemia (2) ANXIETY STATE NOS (3) Arthroscopy of knee joint (4) CELLULITIS OF LEG (5) Cholangiocarcinoma (6) GOUT NOS (7) HYPERLIPIDEMIA NEC/NOS (8) HYPERTENSION NOS (9) Mass of skull (10) Metastatic adenocarcinoma (11) Pleural effusion (12) SYNCOPE AND COLLAPSE Family History Diabetes mellitus FH: heart disease FH: lung disease FHx: cancer Hypertension Social History Smoking Status: Former Smoker (14-15 years; quantity unclear) Alcohol Use: none Drug Use: none Marital Status: Housing Status: lives with family Occupation Status: retired Current/Historical Medications Scheduled Allopurinol (Zyloprim), 300 MG PO QAM Cetirizine HCl (All Day Allergy), 10 MG PO QAM Fentanyl (Fentanyl), 50 MCG EXT UD Levetiracetam (Keppra), 500 MG PO BID Pantoprazole (Protonix), 40 MG PO QAM Scheduled PRN Ondansetron Hcl (Zofran), 8 MG PO TID PRN for Nausea Oxycodone Ir (Roxicodone Ir), 10 MG PO Q4H PRN for Pain Prochlorperazine Maleate (Compazine), 10 MG PO Q6H PRN for Nausea Allergies Coded Allergies: Ciprofloxacin (Verified Allergy, Severe, SOB/SWELLING, 03/25/16) Sulfa Antibiotics (Verified Allergy, Severe, THROAT CLOSED WITH SULFA DRUGS, 03/25/16) Codeine (Verified Allergy, Unknown, "couldn't breath", 03/25/16) Latex1 -Allergic Contact Dermititis (Unverified Allergy, Unknown, HAD LATEX CATHETER AND HAD BURNING ITCHING, 03/25/16) Physical Exam Vital Signs Date Time Temp Pulse Resp B/P Pulse Ox O2 Delivery O2 Flow Rate FiO2 03/25/16 13:56 78 14 118/74 94 Room Air 03/25/16 12:40 72 03/25/16 12:33 75 13 107/76 96 Room Air 03/25/16 11:47 94 Room Air 03/25/16 10:39 36.7 103 16 105/74 93 Room Air Physical Exam Constitutional: Vital signs as above were reviewed. Eyes: Pupils equal, round, and reactive to light. Extraocular muscles are intact. No proptosis. No photophobia. Patient has evidence of corneal scarring from childhood injury ENT: Mucous membranes are moist. Pharynx is clear. No sinus tenderness. TMs are clear bilaterally. Superficial left sided abrasion of tongue; no active bleeding Cardiovascular: Heart with a regular rate and rhythm. Pulses are palpable and symmetric in all 4 extremities. No pedal edema appreciated. Respiratory: Lungs clear to auscultation bilaterally. No wheezes, rales, or rhonchi appreciated. No accessory muscle use. No retractions. No increased work of breathing. GI: Abdomen soft, nontender, nondistended. Normal active bowel sounds. No abdominal hernias appreciated. No rebound. No guarding. Right subcostal tenderness at baseline : No CVA tenderness appreciated. Musculoskeletal: No midline cervical or vertebral tenderness. No gross deformities. No bony tenderness. No calf swelling or tenderness. Integumentary: Warm, dry, no rashes appreciated. Neurological: Patient awake, alert, and oriented x 3. Cranial nerves two through 12 grossly intact. Motor 5 out of 5 strength bilateral upper and lower extremities. Lymph: No cervical lymphadenopathy appreciated. Medical Decision & Procedures ER Provider Diagnostic Interpretation: [~ rep ct add3]] HEAD CT WITH AND WITHOUT INTRAVENOUS CONTRAST HISTORY: seizures TECHNIQUE: Multiaxial CT images of the head were performed both before and after the intravenous administration of contrast. COMPARISON STUDY: Head CT 08/19/2015. FINDINGS: The paranasal sinuses and mastoid air cells are clear. A right frontal craniectomy with an overlying metallic mesh remains unchanged. Increase in size in the right frontotemporal destructive calvarial lesion. This currently measures 4 cm, previously measuring 2.6 cm. The soft tissue component within this cavitary lesion extends into the epidural space and measures up to 4 mm in thickness. This abuts and slightly displaces but does not extend into the adjacent brain parenchyma. There is no hematoma, midline shift, acute infarct. Thickened hyperdense material within the right frontal lobe/high convexity deep to the craniectomy site is not significantly changed. This measures up to 1 cm thickness. The stability favors postoperative change. This results in mild mass effect along the right frontal lobe and a small focus of vasogenic edema, unchanged. No abnormal intraparenchymal enhancement within the brain. IMPRESSION: 1. Increase in size in the right frontotemporal 4 cm destructive calvarial lesion. The surrounding soft tissue component extends into the adjacent epidural space and measures up to 4 mm in thickness. This abuts and slightly displaces but does not invade into the adjacent brain parenchyma. 2. No new metastatic lesions identified. 3. No change in the extra-axial hyperdense thickening deep to the craniectomy site. The stability favors postoperative change. Electronically signed by: Coleman Schulz M.D. 03/25/2016 1:24 PM Dictated Date/Time: 03/25/2016 1:12 PM CHEST ONE VIEW PORTABLE HISTORY: shortness of breath COMPARISON: Chest 03/04/2016. FINDINGS: Left subclavian Port-A-Cath terminates in the distal SVC. There are low lung volumes. No pneumothorax. Small right pleural effusion persists. The heart is stable in size. No new focal lung consolidations. No evidence for pulmonary edema. A few scattered nodules are again noted. This is consistent with the patient's history of metastatic disease. IMPRESSION: 1. No significant change in the small right pleural effusion. 2. Metastatic pulmonary nodules are again noted. Electronically signed by: Coleman Schulz M.D. 03/25/2016 11:47 AM Dictated Date/Time: 03/25/2016 11:45 AM Laboratory Results 03/25/16 11:50 Red Blood Count 3.86, Mean Corpuscular Volume 93.8, Mean Corpuscular Hemoglobin 31.1, Mean Corpuscular Hemoglobin Concent 33.1, Mean Platelet Volume 9.6, Neutrophils (%) (Auto) 71.5, Lymphocytes (%) (Auto) 10.4, Monocytes (%) (Auto) 14.5, Eosinophils (%) (Auto) 2.5, Basophils (%) (Auto) 0.3, Neutrophils # (Auto ) 4.53, Lymphocytes # (Auto) 0.66, Monocytes # (Auto) 0.92, Eosinophils # (Auto ) 0.16, Basophils # (Auto) 0.02 03/25/16 11:50 Test 03/25/16 11:50 03/25/16 14:13 White Blood Count 6.34 K/uL (4.8-10.8) Red Blood Count 3.86 M/uL (4.7-6.1) Hemoglobin 12.0 g/dL (14.0-18.0) Hematocrit 36.2 % (42-52) Mean Corpuscular Volume 93.8 fL (80-100) Mean Corpuscular Hemoglobin 31.1 pg (25-34) Mean Corpuscular Hemoglobin Concent 33.1 g/dl (32-36) Platelet Count 52 K/uL (130-400) Mean Platelet Volume 9.6 fL (7.4-10.4) Neutrophils (%) (Auto) 71.5 % Lymphocytes (%) (Auto) 10.4 % Monocytes (%) (Auto) 14.5 % Eosinophils (%) (Auto) 2.5 % Basophils (%) (Auto) 0.3 % Neutrophils # (Auto) 4.53 K/uL (1.4-6.5) Lymphocytes # (Auto) 0.66 K/uL (1.2-3.4) Monocytes # (Auto) 0.92 K/uL (0.11-0.59) Eosinophils # (Auto) 0.16 K/uL (0-0.5) Basophils # (Auto) 0.02 K/uL (0-0.2) RDW Standard Deviation 54.7 fL (36.4-46.3) RDW Coefficient of Variation 16.1 % (11.5-14.5) Immature Granulocyte % (Auto) 0.8 % Immature Granulocyte # (Auto) 0.05 K/uL (0.00-0.02) Tear Drop Cells OCCASIONAL Anion Gap 12.0 mmol/L (3-11) Est Creatinine Clear Calc Drug Dose 73.8 ml/min Estimated GFR () 73.1 Estimated GFR (Non- 63.1 BUN/Creatinine Ratio 8.8 (10-20) Calcium Level 8.6 mg/dl (8.5-10.1) Magnesium Level 1.5 mg/dl (1.8-2.4) Total Bilirubin 0.5 mg/dl (0.2-1) Aspartate Amino Transf (AST/SGOT) 40 U/L (15-37) Alanine Aminotransferase (ALT/SGPT) 15 U/L (12-78) Alkaline Phosphatase 128 U/L (45-117) Total Protein 6.8 gm/dl (6.4-8.2) Albumin 2.7 gm/dl (3.4-5.0) Globulin 4.1 gm/dl (2.5-4.0) Albumin/Globulin Ratio 0.7 (0.9-2) Urine Color YELLOW Urine Appearance CLEAR (CLEAR) Urine pH 5.5 (4.5-7.5) Urine Specific [place] > 1.045 (1.000-1.030) Urine Protein NEG (NEG) Urine Glucose (UA) NEG (NEG) Urine Ketones NEG (NEG) Urine Occult Blood NEG (NEG) Urine Nitrite NEG (NEG) Urine Bilirubin NEG (NEG) Urine Urobilinogen NEG (NEG) Urine Leukocyte Esterase NEG (NEG) Medications Administered Medications (Trade) Dose Ordered Sig/[place]ah Route Start Time Stop Time Status Last Admin Dose Admin Miscellaneous (Fentanyl Patch Remove & Waste) 1 ea Q3D N/A 03/25/16 11:00 04/24/16 10:59 03/25/16 11:37 1 EA Fentanyl 50 mcg 50 mcg NOW STAT TD 03/25/16 10:56 03/25/16 10:59 DC 03/25/16 11:38 50 MCG Sodium Chloride (Nss 1000ml) 1,000 ml @ 999 mls/hr Q1H1M ONCE IV 03/25/16 11:30 03/25/16 12:30 DC 03/25/16 11:53 999 MLS/HR Oxycodone HCl (Roxicodone Immediate Rel Tab) 5 mg NOW STAT PO 03/25/16 12:00 03/25/16 12:01 DC 03/25/16 12:18 5 MG Ondansetron HCl 8 mg 8 mg STK-MED ONCE .ROUTE 03/25/16 12:07 03/25/16 12:08 DC 03/25/16 12:17 8 MG Magnesium Sulfate/ Prmx (Magnesium Sulfate/Premixed D5W) 100 ml @ 100 mls/hr NOW STAT IV 03/25/16 12:50 03/25/16 13:49 DC 03/25/16 13:41 100 MLS/HR Levetiracetam (Keppra Tab) 500 mg NOW STAT PO 03/25/16 14:38 03/25/16 14:39 DC 03/25/16 15:00 500 MG Heparin Sodium (Porcine) (Heparin 100 Unit/ml 5ml Flush) 5 ml STK-MED ONCE .ROUTE 03/25/16 15:03 03/25/16 15:04 DC 03/25/16 15:05 5 ML ED Course 10:45 - Patient seen CBC, CMP, Mg, UA and CXR 50 mcg Fentanyl patch ordered and 5 mg oxycodone given for pain 11:30 - Precepted case with Dr. Jameson 12:00 - Zofran ordered for patient CT brain with contrast ordered 13:40 - CT reviewed and no evidence of new metastases; calvarial lesion has progressed in size but not invading brain parenchyma MRI with and without contrast ordered 14:00 - Patient notifed of MRI; refusing unless he is completely sedated Offered Ativan in scanner; patient still refusing; would like open MRI 14:30 - Discussed closed MRI vs no MRI and discharging on Keppra Patient verbalizes understanding that not doing MRI will delay definitively knowing if there are new mets or not; patient agreeable to starting Keppra Loading dose Keppra given in the ED 14:45 - Patient discharged home in stable condition. No seizure activity thoughout entire ED visit. Medical Decision A thorough history was obtained, physical examination performed and the EMR was reviewed. The case was reviewed multiple times over with Dr. Ariel Jameson during the patient's ED visit. Patient is chronic opiate regimen for metastatic pain. As such PDMP was reviewed. There was no evidence of patterns for narcotic abuse or diversion. Patient presents with new seizure activity this morning. The only time has had a seizure was many months ago as a post-surgical event following brain metastasis resection. Given ongoing history of metastatic cholangiocarcinoma, the main concern is new metastatic disease in the brain. We did a CT with contrast, which did highlight previously know areas of metastases within the right calvarium. However, there was no invasion into the brain parenchyma. MRI would ideally give a better view for smaller metastases that CT would not pickle sorter. We discussed this with the patient. He refused MRI unless he was under complete sedation. We offered Ativan but he refused. He preferred to have open MRI which we do not have access to from the ED. We discussed that the alternative would be to discharge patient on seizure prophylaxis and patient was agreeable to this. We have informed him that he cannot drive due to his new seizure and will require neurology follow-up. Patient was agreeable to this. Other differentials include, hypoglycemia, electrolyte dysfunction, meningitis, encephalitis. Review of all other labs were normal. There was no evidence of infection. There was no overt electrolyte derangement apart from mild hypomagnesemia, which we repleted her in the ED. The glucose was within normal limits. Patient is due to see his oncologist tomorrow for follow-up. He was notified to return immediately to the ED if he had recurrence of his seizure. Otherwise, he should follow-up with his PCP and oncologist this week. I have notifed case management to get him established with neurology since we are starting him on Keppra. [place] Drug Monitoring Program Search Results: patient reviewed within database, no issues identified Impression Primary Impression: Seizure Additional Impression: Metastatic adenocarcinoma Departure Information Dispostion Home / Self-Care Condition GOOD Prescriptions Levetiracetam (Keppra) 250 Mg Tab 500 MG PO BID for 30 Days, #120 0 Refills Take 500 mg twice daily for 2 weeks If tolerated after 2 weeks, call your PCP to increase the dose Prov: Howard Oneil MD 03/25/16 Referrals Travis Lenz M.D. (PCP) Patient Instructions My [facility] Additional Instructions You came to the ED for a new onset seizure. Your seizure had resolved by the time you came to the emergency department. We checked lab studies on you, which were fortunately normal. There is no evidence of infection at this time. Because you have known metastatic disease our concern was new metastatic disease in the brain. We checked a CT, which showed some progression of a bony lesion but it is not invading the brain. However, there were no new identified metastases to the brain. However, CT can miss small metastases so we discussed with you the possibility of doing an MRI with mild sedation. Unfortunately, you note that you would not be able to tolerate this process due to claustrophobia. As such we will forego with MRI at this time. However, your PCP or oncologist should try and obtain an open MRI to determine if there are any new lesions in the brain. Because we do not have a definitive answer on whether there are new metastases, we strongly recommend that you start an anti-seizure medication. This will prevent new seizures. Take the medication as instructed for the next 2 weeks. If you are tolerating the dose, you should call your PCP to increase your dosage. Side effects of this medication include high blood pressure, nausea/ vomiting and weakness. We will arrange for you to see neurology in the outpatient setting. Because of your seizure, you cannot drive indefinitely. If your seizures return, you need to come back to the ED. Otherwise, please see your primary care provider in 3-5 days to ensure that your symptoms continue to improve. Problem Qualifiers
[2016-03-25] MEDS ORDERED: SODIUM CHLORIDE 0.9% 1000ML 1,000 ML IV ONE (11:30)
[2016-03-25 11:47] VITALS: O2SAT 94
--- NOTE | 2016-03-25 11:48 | DIAGNOSTIC IMAGING REPORT ---
CHEST ONE VIEW PORTABLE HISTORY: shortness of breath COMPARISON: Chest 03/04/2016. FINDINGS: Left subclavian Port-A-Cath terminates in the distal SVC. There are low lung volumes. No pneumothorax. Small right pleural effusion persists. The heart is stable in size. No new focal lung consolidations. No evidence for pulmonary edema. A few scattered nodules are again noted. This is consistent with the patient's history of metastatic disease. IMPRESSION: 1. No significant change in the small right pleural effusion. 2. Metastatic pulmonary nodules are again noted. Electronically signed by: Coleman Schulz M.D. 03/25/2016 11:47 AM Dictated Date/Time: 03/25/2016 11:45 AM
[2016-03-25] MEDS: OXYCODONE HCL SOLN 5 MG/5 ML UDC PO ONE ×2 (11:52→11:55)
[2016-03-25] MEDS ORDERED: OXYCODONE HCL IR 5 MG TAB (IMMEDIATE RELEASE) PO STA (12:00)
[2016-03-25] MEDS ORDERED: ONDANSETRON 8 MG/54 ML D5W ONE (12:07)
[2016-03-25] MEDS ORDERED: ONDANSETRON INJ 2 MG/ML 2 ML VIAL IV STA (12:07)
[2016-03-25 12:09] LABS: HEMATOCRIT 36.2 % (42-52); MEAN CELL VOLUME 93.8 fL (80-100); MEAN CORPUSCULAR HEMOGLOBIN 31.1 pg (25-34); MEAN CORPUSCULAR HGB CONC 33.1 g/dl (32-36); RED BLOOD COUNT 3.86 M/uL (4.7-6.1); WHITE BLOOD COUNT 6.34 K/uL (4.8-10.8)
[2016-03-25] MEDS ORDERED: OPTIRAY 320 IV PRN (12:15)
[2016-03-25 12:23] LABS: MEAN PLATELET VOLUME 9.6 fL (7.4-10.4); PLATELET COUNT 52 K/uL (130-400)
[2016-03-25 12:29] LABS: BUN/CREATININE RATIO 8.8 (10-20); CALCIUM 8.6 mg/dl (8.5-10.1); CREATININE 1.2 mg/dl (0.60-1.40); MAGNESIUM 1.5 mg/dl (1.8-2.4); POTASSIUM 3.5 mmol/L (3.5-5.1)
[2016-03-25 12:30] LABS: BASO % 0.3 %; BASO ABS # 0.02 K/uL (0-0.2); COMPLETE YES; EOS % 2.5 %; IG% 0.8 %; LYMPH % 10.4 %; LYMPH ABS # 0.66 K/uL (1.2-3.4); MONO % 14.5 %; NEUT % 71.5 %; TEAR DROP CELLS OCCASIONAL
[2016-03-25 12:36] LABS: ALB/GLOB RATIO 0.7 (0.9-2)
[2016-03-25] MEDS ORDERED: MAGNESIUM SULFATE 1GM / D5W 1 GM in PREMIXED IN D5W 100 ML IV STA (12:50)
[2016-03-25] MEDS ORDERED: MAGNESIUM SULFATE 1GM / D5W 1 GM BAG ONE (13:11)
--- NOTE | 2016-03-25 13:25 | DIAGNOSTIC IMAGING REPORT ---
HEAD CT WITH AND WITHOUT INTRAVENOUS CONTRAST HISTORY: seizures TECHNIQUE: Multiaxial CT images of the head were performed both before and after the intravenous administration of contrast. COMPARISON STUDY: Head CT 08/19/2015. FINDINGS: The paranasal sinuses and mastoid air cells are clear. A right frontal craniectomy with an overlying metallic mesh remains unchanged. Increase in size in the right frontotemporal destructive calvarial lesion. This currently measures 4 cm, previously measuring 2.6 cm. The soft tissue component within this cavitary lesion extends into the epidural space and measures up to 4 mm in thickness. This abuts and slightly displaces but does not extend into the adjacent brain parenchyma. There is no hematoma, midline shift, acute infarct. Thickened hyperdense material within the right frontal lobe/high convexity deep to the craniectomy site is not significantly changed. This measures up to 1 cm thickness. The stability favors postoperative change. This results in mild mass effect along the right frontal lobe and a small focus of vasogenic edema, unchanged. No abnormal intraparenchymal enhancement within the brain. IMPRESSION: 1. Increase in size in the right frontotemporal 4 cm destructive calvarial lesion. The surrounding soft tissue component extends into the adjacent epidural space and measures up to 4 mm in thickness. This abuts and slightly displaces but does not invade into the adjacent brain parenchyma. 2. No new metastatic lesions identified. 3. No change in the extra-axial hyperdense thickening deep to the craniectomy site. The stability favors postoperative change. Electronically signed by: Coleman Schulz M.D. 03/25/2016 1:24 PM Dictated Date/Time: 03/25/2016 1:12 PM
[2016-03-25] MEDS ORDERED: LEVETIRACETAM 500 MG TAB PO STA (14:38)
[2016-03-25 14:44] LABS: URINE APPEARANCE CLEAR (CLEAR); URINE BILIRUBIN NEG (NEG); URINE COLOR YELLOW; URINE NITRITE NEG (NEG); URINE PH 5.5 (4.5-7.5); URINE SPECIFIC GRAVITY > 1.045 (1.000-1.030); UROBILINOGEN NEG (NEG); ZZUR CULT IF INDIC CLEAN CATCH NO
[2016-03-25] MEDS ORDERED: LEVE250T PO (14:46)
[2016-03-25 14:53] LABS: MANUAL MICROSCOPIC REQUIRED? NO; REVIEW REQ? NO
[2016-03-25 15:15] VITALS: BP 132/78; PULSE 76; O2SAT 96
--- NOTE | 2016-03-25 16:13 | EMERGENCY ROOM VISIT NOTE ---
History Report prepared by Placido: Shane Quezada Under the Supervision of: Dr. Ariel Jameson D.O. First contact with patient: 10:36 Chief Complaint: SEIZURE Stated Complaint: Seizure Nursing Triage Summary: pt here from home via als from home. states pt had a witnessed seizure x 45 seconds. upon ems arrival pt was confused, appeared to be post ictal. in route to ed pt became alert and oriented. no ativan was given to pt upon arrival pt is alert, denies any pain or headache. states does not recall event pt has liver ca with mets to brain History of Present Illness The patient is a 65 year old male who presents to the Emergency Room with complaints of a sudden seizure occurring prior to arrival. Per the , the patient was sitting in a chair, and then he started convulsing and his eyes were rolling to the back of his head, and it went on for about a minute. The states that it took about 20 minutes for the patient to come back to his baseline mental status. The patient notes a had no complaints prior to this occurring. He notes today sitting in the chair just prior to this. At that time he had no chest pain or shortness breath. The patient's states that the patient has terminal adenocarcinoma which he has had many treatments for. The states that he had brain surgery done this year, and the last seizure he had was the day after his surgery. Here currently not performing any other chemotherapy or radiation at this time for his diffuse metastatic disease. The patient denies taking any blood thinners. He does currently admit to slight shortness of breath which is almost completely resolved. Pt denies headache, change in vision, fevers, chest pain, nausea, vomiting, diarrhea, pain with urination, and melena. Source of History: patient Onset: prior to arrival Position: other (global) Quality: other (seizure) Timing: other (sudden) Associated Symptoms: + SOB Review of Systems See HPI for pertinent positives & negatives. A total of 10 systems reviewed and were otherwise negative. Past Medical & Surgical Medical Problems: (1) Anemia (2) ANXIETY STATE NOS (3) Arthroscopy of knee joint (4) CELLULITIS OF LEG (5) Cholangiocarcinoma (6) GOUT NOS (7) HYPERLIPIDEMIA NEC/NOS (8) HYPERTENSION NOS (9) Mass of skull (10) Metastatic adenocarcinoma (11) Pleural effusion (12) SYNCOPE AND COLLAPSE Family History Diabetes mellitus FH: heart disease FH: lung disease FHx: cancer Hypertension Social History Smoking Status: Former Smoker (14-15 years; quantity unclear) Alcohol Use: none Drug Use: none Marital Status: Housing Status: lives with family Occupation Status: retired Current/Historical Medications Scheduled Allopurinol (Zyloprim), 300 MG PO QAM Cetirizine HCl (All Day Allergy), 10 MG PO QAM Fentanyl (Fentanyl), 50 MCG EXT UD Levetiracetam (Keppra), 500 MG PO BID Pantoprazole (Protonix), 40 MG PO QAM Scheduled PRN Ondansetron Hcl (Zofran), 8 MG PO TID PRN for Nausea Oxycodone Ir (Roxicodone Ir), 10 MG PO Q4H PRN for Pain Prochlorperazine Maleate (Compazine), 10 MG PO Q6H PRN for Nausea Allergies Coded Allergies: Ciprofloxacin (Verified Allergy, Severe, SOB/SWELLING, 03/25/16) Sulfa Antibiotics (Verified Allergy, Severe, THROAT CLOSED WITH SULFA DRUGS, 03/25/16) Codeine (Verified Allergy, Unknown, "couldn't breath", 03/25/16) Latex1 -Allergic Contact Dermititis (Unverified Allergy, Unknown, HAD LATEX CATHETER AND HAD BURNING ITCHING, 03/25/16) Physical Exam Vital Signs Date Time Temp Pulse Resp B/P Pulse Ox O2 Delivery O2 Flow Rate FiO2 03/25/16 13:56 78 14 118/74 94 Room Air 03/25/16 12:40 72 03/25/16 12:33 75 13 107/76 96 Room Air 03/25/16 11:47 94 Room Air 03/25/16 10:39 36.7 103 16 105/74 93 Room Air Physical Exam GENERAL: Sitting up in bed, disheveled, no acute distress. HEAD: Old incision on the right parietal region. EYE EXAM: normal conjunctiva, PERRL and EOM's intact OROPHARYNX: Bite mai on right side of tongue. NECK: supple, no nuchal rigidity, no adenopathy, non-tender LUNGS: Clear to auscultation. Normal chest wall mechanics HEART: no murmurs, S1 normal and S2 normal ABDOMEN: abdomen soft, non-tender, normo-active bowel sounds, no masses, no rebound or guarding. BACK: Back is symmetrical on inspection and there is no deformity, no midline tenderness, no CVA tenderness. SKIN: no rashes and no bruising UPPER EXTREMITIES: upper extremities are grossly normal. LOWER EXTREMITIES: No pitting edema. Calves are equal bilateral NEURO EXAM: Normal sensorium, cranial nerves II-XII intact, normal speech, no weakness of arms, no weakness of legs. No drift. Finger to nose intact. Gross sensation intact. Medical Decision & Procedures ER Provider Diagnostic Interpretation: Xray results per the radiologist and my interpretation. Other results have been interpreted by the radiologist and reviewed by me. CHEST ONE VIEW PORTABLE HISTORY: shortness of breath COMPARISON: Chest 03/04/2016. FINDINGS: Left subclavian Port-A-Cath terminates in the distal SVC. There are low lung volumes. No pneumothorax. Small right pleural effusion persists. The heart is stable in size. No new focal lung consolidations. No evidence for pulmonary edema. A few scattered nodules are again noted. This is consistent with the patient's history of metastatic disease. IMPRESSION: 1. No significant change in the small right pleural effusion. 2. Metastatic pulmonary nodules are again noted. Electronically signed by: Coleman Schulz M.D. 03/25/2016 11:47 AM Dictated Date/Time: 03/25/2016 11:[address] WITH AND WITHOUT INTRAVENOUS CONTRAST HISTORY: seizures TECHNIQUE: Multiaxial CT images of the head were performed both before and after the intravenous administration of contrast. COMPARISON STUDY: Head CT 08/19/2015. FINDINGS: The paranasal sinuses and mastoid air cells are clear. A right frontal craniectomy with an overlying metallic mesh remains unchanged. Increase in size in the right frontotemporal destructive calvarial lesion. This currently measures 4 cm, previously measuring 2.6 cm. The soft tissue component within this cavitary lesion extends into the epidural space and measures up to 4 mm in thickness. This abuts and slightly displaces but does not extend into the adjacent brain parenchyma. There is no hematoma, midline shift, acute infarct. Thickened hyperdense material within the right frontal lobe/high convexity deep to the craniectomy site is not significantly changed. This measures up to 1 cm thickness. The stability favors postoperative change. This results in mild mass effect along the right frontal lobe and a small focus of vasogenic edema, unchanged. No abnormal intraparenchymal enhancement within the brain. IMPRESSION: 1. Increase in size in the right frontotemporal 4 cm destructive calvarial lesion. The surrounding soft tissue component extends into the adjacent epidural space and measures up to 4 mm in thickness. This abuts and slightly displaces but does not invade into the adjacent brain parenchyma. 2. No new metastatic lesions identified. 3. No change in the extra-axial hyperdense thickening deep to the craniectomy site. The stability favors postoperative change. Electronically signed by: Coleman Schulz M.D. 03/25/2016 1:24 PM Dictated Date/Time: 03/25/2016 1:12 PM Laboratory Results 03/25/16 11:50 Red Blood Count 3.86, Mean Corpuscular Volume 93.8, Mean Corpuscular Hemoglobin 31.1, Mean Corpuscular Hemoglobin Concent 33.1, Mean Platelet Volume 9.6, Neutrophils (%) (Auto) 71.5, Lymphocytes (%) (Auto) 10.4, Monocytes (%) (Auto) 14.5, Eosinophils (%) (Auto) 2.5, Basophils (%) (Auto) 0.3, Neutrophils # (Auto ) 4.53, Lymphocytes # (Auto) 0.66, Monocytes # (Auto) 0.92, Eosinophils # (Auto ) 0.16, Basophils # (Auto) 0.02 03/25/16 11:50 Test 03/25/16 11:50 03/25/16 14:13 White Blood Count 6.34 K/uL (4.8-10.8) Red Blood Count 3.86 M/uL (4.7-6.1) Hemoglobin 12.0 g/dL (14.0-18.0) Hematocrit 36.2 % (42-52) Mean Corpuscular Volume 93.8 fL (80-100) Mean Corpuscular Hemoglobin 31.1 pg (25-34) Mean Corpuscular Hemoglobin Concent 33.1 g/dl (32-36) Platelet Count 52 K/uL (130-400) Mean Platelet Volume 9.6 fL (7.4-10.4) Neutrophils (%) (Auto) 71.5 % Lymphocytes (%) (Auto) 10.4 % Monocytes (%) (Auto) 14.5 % Eosinophils (%) (Auto) 2.5 % Basophils (%) (Auto) 0.3 % Neutrophils # (Auto) 4.53 K/uL (1.4-6.5) Lymphocytes # (Auto) 0.66 K/uL (1.2-3.4) Monocytes # (Auto) 0.92 K/uL (0.11-0.59) Eosinophils # (Auto) 0.16 K/uL (0-0.5) Basophils # (Auto) 0.02 K/uL (0-0.2) RDW Standard Deviation 54.7 fL (36.4-46.3) RDW Coefficient of Variation 16.1 % (11.5-14.5) Immature Granulocyte % (Auto) 0.8 % Immature Granulocyte # (Auto) 0.05 K/uL (0.00-0.02) Tear Drop Cells OCCASIONAL Anion Gap 12.0 mmol/L (3-11) Est Creatinine Clear Calc Drug Dose 73.8 ml/min Estimated GFR () 73.1 Estimated GFR (Non- 63.1 BUN/Creatinine Ratio 8.8 (10-20) Calcium Level 8.6 mg/dl (8.5-10.1) Magnesium Level 1.5 mg/dl (1.8-2.4) Total Bilirubin 0.5 mg/dl (0.2-1) Aspartate Amino Transf (AST/SGOT) 40 U/L (15-37) Alanine Aminotransferase (ALT/SGPT) 15 U/L (12-78) Alkaline Phosphatase 128 U/L (45-117) Total Protein 6.8 gm/dl (6.4-8.2) Albumin 2.7 gm/dl (3.4-5.0) Globulin 4.1 gm/dl (2.5-4.0) Albumin/Globulin Ratio 0.7 (0.9-2) Urine Color YELLOW Urine Appearance CLEAR (CLEAR) Urine pH 5.5 (4.5-7.5) Urine Specific [place] > 1.045 (1.000-1.030) Urine Protein NEG (NEG) Urine Glucose (UA) NEG (NEG) Urine Ketones NEG (NEG) Urine Occult Blood NEG (NEG) Urine Nitrite NEG (NEG) Urine Bilirubin NEG (NEG) Urine Urobilinogen NEG (NEG) Urine Leukocyte Esterase NEG (NEG) Laboratory results per my review. Medications Administered Medications (Trade) Dose Ordered Sig/Aleah Route Start Time Stop Time Status Last Admin Dose Admin Miscellaneous (Fentanyl Patch Remove & Waste) 1 ea Q3D N/A 03/25/16 11:00 04/24/16 10:59 03/25/16 11:37 1 EA Fentanyl 50 mcg 50 mcg NOW STAT TD 03/25/16 10:56 03/25/16 10:59 DC 03/25/16 11:38 50 MCG Sodium Chloride (Nss 1000ml) 1,000 ml @ 999 mls/hr Q1H1M ONCE IV 03/25/16 11:30 03/25/16 12:30 DC 03/25/16 11:53 999 MLS/HR Oxycodone HCl (Roxicodone Immediate Rel Tab) 5 mg NOW STAT PO 03/25/16 12:00 03/25/16 12:01 DC 03/25/16 12:18 5 MG Ondansetron HCl 8 mg 8 mg STK-MED ONCE .ROUTE 03/25/16 12:07 03/25/16 12:08 DC 03/25/16 12:17 8 MG Magnesium Sulfate/ Prmx (Magnesium Sulfate/Premixed D5W) 100 ml @ 100 mls/hr NOW STAT IV 03/25/16 12:50 03/25/16 13:49 DC 03/25/16 13:41 100 MLS/HR Levetiracetam (Keppra Tab) 500 mg NOW STAT PO 03/25/16 14:38 03/25/16 14:39 DC 03/25/16 15:00 500 MG Heparin Sodium (Porcine) (Heparin 100 Unit/ml 5ml Flush) 5 ml STK-MED ONCE .ROUTE 03/25/16 15:03 03/25/16 15:04 DC 03/25/16 15:05 5 ML ECG Indication: other (seizure) Rate (beats per minute): 80 Rhythm: sinus rhythm Findings: Q waves (Inferior), other (sinus arrhythmia, normal intervals) Comparison ECG Date: 05/16/2015 Change: no significant change ED Course ED COURSE: Vital signs were reviewed and showed normal vitals The patients medical record was reviewed The above diagnostic studies were performed and reviewed. ED treatments and interventions as stated above. 1056: Fentanyl 50mcg TD 1100: Oxycodone HCl 5mg PO 1130: Sodium Chloride 1000 ml @ 999 mls/hr IV 1135: The patient was evaluated in room B4. A complete history and physical examination was performed. 1200: Oxycodone HCl 5mg PO 1207: Zofran Inj 4mg IV 1250: Magnesium Sulfate 1 mg/Prmx 100 ml @ 100 mls/hr 1356: The resident discussed the patient's case with neurology. 1445: I reassessed the patient, and he does not want the MRI done. He understands the risks and benefits. He will start Keppra, and he is instructed not to drive. [employer] driver's licence form was filled out. He would like to follow up with his oncologist, Dr. Melgar at 10am tomorrow. Based on the patients age, coexisting illnesses, exam and lab findings the decision to treat as an outpatient was made. The patient remained stable while under my care. The patient appeared well at the time of discharge. Medical Decision Differential diagnosis includes etiologies such as infection, hypoglycemia, electrolyte abnormalities, cardiac sources, intracerebral event, trauma, toxicologic, neurologic, as well as others were entertained. Patient is a 65-year-old gentleman with diffuse metastatic cancer who presents the ER following 1 minute tonic clonic seizure. On exam he is completely neurologically intact. He did have a postictal phase. CBC was unremarkable. BMP along with LFTs, bilirubin or unremarkable as well. Albumin is low. UA was negative. No change in his chest x-ray. CT head was negative. EKG was unchanged from previous. His complete a symptomatically on reevaluation. At his baseline. Following CT head with IV contrast which showed the known cranial lesion my resident discussed this with neurology. Neurology recommended MRI but patient declined. Offered Ativan for anxiety but he can declined. Following this neurology recommended an outpatient MRI along with starting Keppra. He is given a dose of 500 mg in the ER and discharged with 500 mg twice a day. He is given a prescription for 2 weeks. He was instructed to follow with his primary care doctor within this timeframe. He is given a referral to neurology which care management will set up. They have an appointment tomorrow with Dr. Noble from hematology oncology. I recommended discussing with him obtaining an outpatient open MRI for possible metastatic brain lesions. Patient was discharged and understood that if this occurs again he needs to return immediately to the ER. [employer] form filled out and given to Kami to fax. Risk and benefits were explained and patient was discharged follow-up with hematology oncology tomorrow. Discussed with Pt concerning signs and symptoms to watch out for. Pt was instructed to follow up with their PCP and discussed with the patient their option to return to the ED at anytime for persistent or worsening symptoms. The appropriate anticipatory guidance and out- patient management, including indications for return to the emergency department , were explained at length to the patient and understood. Impression Primary Impression: Seizure Additional Impression: Metastatic adenocarcinoma Scribe Attestation The scribe's documentation has been prepared under my direction and personally reviewed by me in its entirety. I confirm that the note above accurately reflects all work, treatment, procedures, and medical decision making performed by me. Departure Information Dispostion Home / Self-Care Prescriptions Levetiracetam (Keppra) 250 Mg Tab 500 MG PO BID for 30 Days, #120 0 Refills Take 500 mg twice daily for 2 weeks If tolerated after 2 weeks, call your PCP to increase the dose Prov: Howard Oneil MD 03/25/16 Referrals Travis Lenz M.D. (PCP) Forms HOME CARE DOCUMENTATION FORM, IMPORTANT VISIT INFORMATION Patient Instructions My [facility] Additional Instructions You came to the ED for a new onset seizure. Your seizure had resolved by the time you came to the emergency department. We checked lab studies on you, which were fortunately normal. There is no evidence of infection at this time. Because you have known metastatic disease our concern was new metastatic disease in the brain. We checked a CT, which showed some progression of a bony lesion but it is not invading the brain. However, there were no new identified metastases to the brain. However, CT can miss small metastases so we discussed with you the possibility of doing an MRI with mild sedation. Unfortunately, you note that you would not be able to tolerate this process due to claustrophobia. As such we will forego with MRI at this time. However, your PCP or oncologist should try and obtain an open MRI to determine if there are any new lesions in the brain. Because we do not have a definitive answer on whether there are new metastases, we strongly recommend that you start an anti-seizure medication. This will prevent new seizures. Take the medication as instructed for the next 2 weeks. If you are tolerating the dose, you should call your PCP to increase your dosage. Side effects of this medication include high blood pressure, nausea/ vomiting and weakness. We will arrange for you to see neurology in the outpatient setting. Because of your seizure, you cannot drive indefinitely. If your seizures return, you need to come back to the ED. Otherwise, please see your primary care provider in 3-5 days to ensure that your symptoms continue to improve. Problem Qualifiers
== END 2016-03-25 14:15 | disposition home or self-care (01) ==
LOC: EDBD 10:32 → C.EDB 10:33
DX: R56.9 Unspecified convulsions (principal); R06.02 Shortness of breath; C22.1 Intrahepatic bile duct carcinoma; C79.31 Secondary malignant neoplasm of brain; Z92.21 Personal history of antineoplastic chemotherapy; Z87.891 Personal history of nicotine dependence; I10 Essential (primary) hypertension

== ENCOUNTER 2016-03-30 19:57 | Emergency (ER) | payer OTHER ==
[~2016-03-30] VITALS: Ht 177.8 cm; Wt 102.6 kg
[~2016-03-30 19:57] MED LIST changes: +DRGTP25 EXT; +LEVE250T PO; -MRPSR15 PO
[2016-03-30 19:59] VITALS: TEMP 36.5; Ht 177.8 cm; Wt 102.6 kg
[2016-03-30 20:29] VITALS: O2SAT 97
[2016-03-30 20:34] LABS: HEMATOCRIT 35.4 % (42-52); MEAN CELL VOLUME 93.7 fL (80-100); MEAN CORPUSCULAR HEMOGLOBIN 31.2 pg (25-34); MEAN CORPUSCULAR HGB CONC 33.3 g/dl (32-36); RED BLOOD COUNT 3.78 M/uL (4.7-6.1)
--- NOTE | 2016-03-30 20:43 | DIAGNOSTIC IMAGING REPORT ---
CHEST ONE VIEW PORTABLE CLINICAL HISTORY: sob/cp dyspnea COMPARISON STUDY: 03/25/2016 FINDINGS: Central catheter remains in superior vena cava. Right basilar atelectatic changes stable. Lungs otherwise appear clear. Pulmonary nodularity is somewhat less defined the current study. IMPRESSION: No acute or interval process compared to the prior exam. Electronically signed by: Mark Luong M.D. 03/30/2016 8:42 PM Dictated Date/Time: 03/30/2016 8:41 PM
[2016-03-30] MEDS ORDERED: OXYC1TAB3 PO (20:44)
[2016-03-30] MEDS ORDERED: FNTTP50 TD (20:44)
[2016-03-30] MEDS ORDERED: PANT40TA PO (20:44)
[2016-03-30] MEDS ORDERED: LEVE500T PO (20:44)
[2016-03-30 20:46] LABS: MEAN PLATELET VOLUME 9.5 fL (7.4-10.4); PLATELET COUNT 51 K/uL (130-400)
[2016-03-30 20:56] LABS: ALT/SGPT 14 U/L (12-78); BLOOD UREA NITROGEN 9 mg/dl (7-18); BUN/CREATININE RATIO 7.8 (10-20); CALCIUM 8.3 mg/dl (8.5-10.1); CARBON DIOXIDE 23 mmol/L (21-32); CHLORIDE 104 mmol/L (98-107); GLUCOSE 92 mg/dl (70-99); POTASSIUM 3.5 mmol/L (3.5-5.1); SODIUM 140 mmol/L (136-145)
[2016-03-30] MEDS ORDERED: NITROGLYCERIN 0.4 MG SL PER TAB CHARGE ONE (20:56)
[2016-03-30] MEDS ORDERED: NITROGLYCERIN 0.4 MG SL PER TAB CHARGE SL STA (20:56)
[2016-03-30 21:01] LABS: ALKALINE PHOSPHATASE 125 U/L (45-117); AST/SGOT 38 U/L (15-37)
[2016-03-30 21:10] LABS: BASO % 0.3 %; BASO ABS # 0.02 K/uL (0-0.2); COMPLETE YES; IG% 0.6 %; LYMPH % 17.6 %; LYMPH ABS # 1.25 K/uL (1.2-3.4); MONO % 10.8 %; NEUT % 67.7 %; TEAR DROP CELLS 1+
[2016-03-30 21:15] LABS: INR 1.2 (0.9-1.1); PARTIAL THROMBOPLASTIN RATIO 1.3; PROTHROMBIN TIME (PATIENT) 13.4 SECONDS (9.0-12.0)
[2016-03-30] MEDS ORDERED: OPTIRAY 320 IV PRN (22:15)
--- NOTE | 2016-03-30 22:34 | DIAGNOSTIC IMAGING REPORT ---
CHEST CTA for PULMONARY ARTERIES CT DOSE: 634.83 mGy.cm HISTORY: Chest pain dyspnea TECHNIQUE: Multiaxial CT images of the chest were performed following the intravenous administration of contrast to evaluate the pulmonary arteries. Maximal intensity projection images were also obtained. COMPARISON STUDY: 02/03/2016 FINDINGS: Study is negative for pulmonary embolus. There is right pleural effusion with right basilar atelectatic changes of the progressive from the prior study. Parenchymal nodularity consistent with the patient's known metastatic changes somewhat progressive. There is a destructive lesion involving the posterior chest wall on the right. Extensive T8-T10 with evidence for bone and posterior rib destruction. No definite involvement of the spinal canal is present. 5. Mild progressive left hemithoracic pulmonary nodularity. The metastatic lesion in a neoplastic process of the liver is slightly progressive in overall size. Upper abdominal adenopathy is mildly progressive. IMPRESSION: 1. Study is negative for pulmonary embolus. 2. Mildly progressive metastatic change throughout the chest including pulmonary nodularity, right effusion, and destructive posterior chest wall lesions on the right. The largest includes a posterior chest wall mass at T8-T10 in a right paraspinal location with destructive changes involving the T8-T9 and T10 ribs 3. Mildly progressive neoplastic change involving the liver and upper abdomen. 4. Mildly progressive adenopathy of the upper abdomen as well as chest. Electronically signed by: Mark Luong M.D. 03/30/2016 10:32 PM Dictated Date/Time: 03/30/2016 10:26 PM
[2016-03-30] MEDS ORDERED: LEVETIRACETAM 500 MG TAB PO STA (23:36)
[2016-03-30] MEDS ORDERED: HYDROmorphone INJ 1 MG/ML SYR IV STA (23:36)
--- NOTE | 2016-03-31 00:32 | EMERGENCY ROOM VISIT NOTE ---
History Report prepared by Placido: Landon Echevarria Under the Supervision of: Dr. Telma Riley D.O. First contact with patient: 20:03 Chief Complaint: CHEST PAIN Stated Complaint: RAPID HEARTBEAT, CHEST PRESSURE AND PAIN History of Present Illness The patient is a 65 year old male who presents to the Emergency Room with complaints of constant chest pain beginning 3 hours ago. He has a history of cancer and has a port in place. He also complains of shortness of breath. He states that he was watching television and eating when his symptoms began. The patient states that he suddenly began gagging up his food shortly after his pain began. He states that he has been able to successfully swallow water since. He states that he noticed his shortness of breath after walking to the kitchen. The patient states that he felt like his heart was "fluttering" in his chest earlier as well. He denies any leg cramping or swelling. He denies any cardiac history. Source of History: patient Onset: 3 hours ago Position: chest Timing: constant Associated Symptoms: + SOB Note: The patient has experienced some chest "fluttering". He denies any leg cramping or swelling Review of Systems See HPI for pertinent positives & negatives. A total of 10 systems reviewed and were otherwise negative. Past Medical & Surgical Medical Problems: (1) Anemia (2) ANXIETY STATE NOS (3) Arthroscopy of knee joint (4) CELLULITIS OF LEG (5) Cholangiocarcinoma (6) GOUT NOS (7) HYPERLIPIDEMIA NEC/NOS (8) HYPERTENSION NOS (9) Mass of skull (10) Metastatic adenocarcinoma (11) Pleural effusion (12) SYNCOPE AND COLLAPSE Family History Diabetes mellitus FH: heart disease FH: lung disease FHx: cancer Hypertension Social History Smoking Status: Former Smoker Alcohol Use: none Drug Use: none Marital Status: Housing Status: lives with family Occupation Status: retired Current/Historical Medications Scheduled Allopurinol (Zyloprim), 300 MG PO QAM Cetirizine HCl (All Day Allergy), 10 MG PO QAM Fentanyl (Duragesic), 50 MCG TD CQ72HR Levetiractam (Levetiracetam), 500 MG PO BID Ondansetron Hcl (Zofran), 8 MG PO Q8 Pantoprazole (Protonix), 40 MG PO QAM Scheduled PRN Oxycodone Ir (Roxicodone Ir), 5 MG PO Q4H PRN for Severe Pain Prochlorperazine Maleate (Compazine), 10 MG PO Q6H PRN for Nausea Allergies Coded Allergies: Ciprofloxacin (Verified Allergy, Severe, SOB/SWELLING, 03/30/16) Sulfa Antibiotics (Verified Allergy, Severe, THROAT CLOSED WITH SULFA DRUGS, 03/30/16) Codeine (Verified Allergy, Unknown, "couldn't breath", 03/30/16) Latex1 -Allergic Contact Dermititis (Unverified Allergy, Unknown, HAD LATEX CATHETER AND HAD BURNING ITCHING, 03/30/16) Physical Exam Vital Signs Date Time Temp Pulse Resp B/P Pulse Ox O2 Delivery O2 Flow Rate FiO2 03/31/16 01:00 85 14 91 03/31/16 00:59 88 18 121/85 91 03/31/16 00:30 80 24 124/91 94 Room Air 03/30/16 23:30 82 14 122/74 94 Room Air 03/30/16 23:15 85 19 129/68 93 Room Air 03/30/16 23:00 96 15 119/77 93 Room Air 03/30/16 22:30 89 18 115/72 92 Room Air 03/30/16 21:45 104 18 104/79 94 Nasal Cannula 2.0 03/30/16 21:10 91 03/30/16 21:05 86 18 127/77 92 Room Air 03/30/16 20:53 80 18 125/89 98 Room Air 03/30/16 20:31 98 Room Air 03/30/16 20:29 97 Nasal Cannula 2.0 03/30/16 20:28 87 Room Air 03/30/16 20:27 76 03/30/16 20:25 77 14 118/70 94 Room Air 03/30/16 20:24 81 03/30/16 19:59 36.5 92 20 120/77 95 Room Air Physical Exam HEENT: Head - normocephalic and atraumatic Pupils are equal, round, and reactive to light. Extraocular eye muscles are intact, and sclera are anicteric. Nose - moist nasal mucosa without discharge. Mouth - moist buccal mucosa. Oropharynx is nonerythematous and there is no tonsillar exudate or edema noted. Neck: Supple; no JVD, nuchal rigidity, cervical lymphadenopathy, or auscultated bruits. Heart: Regular rate and rhythm. There is a normal S1 and S2 with no murmurs, clicks, or gallops appreciated. Chest: Port in the left upper chest Lungs: Diminished breath sounds in all lung salguero. Abdomen: Soft, completely nontender, nondistended, with good bowel sounds. There are no palpable pulsatile masses or hepatosplenomegaly. There is no guarding, rigidity, or rebound noted. Extremities: No evidence of cyanosis, clubbing, or edema. There are easily palpable peripheral pulses. Skin: Pale, warm and dry with good turgor and no rashes. Medical Decision & Procedures ER Provider Diagnostic Interpretation: X-ray results as stated below per interpretation by me and the radiologist. Other radiology results as stated below per my review and the radiologist's interpretation: CHEST ONE VIEW PORTABLE FINDINGS: Central catheter remains in superior vena cava. Right basilar atelectatic changes stable. Lungs otherwise appear clear. Pulmonary nodularity is somewhat less defined the current study. IMPRESSION: No acute or interval process compared to the prior exam. Electronically signed by: Mark Luong M.D. CHEST CTA for PULMONARY ARTERIES FINDINGS: Study is negative for pulmonary embolus. There is right pleural effusion with right basilar atelectatic changes of the progressive from the prior study. Parenchymal nodularity consistent with the patient's known metastatic changes somewhat progressive. There is a destructive lesion involving the posterior chest wall on the right. Extensive T8-T10 with evidence for bone and posterior rib destruction. No definite involvement of the spinal canal is present. 5. Mild progressive left hemithoracic pulmonary nodularity. The metastatic lesion in a neoplastic process of the liver is slightly progressive in overall size. Upper abdominal adenopathy is mildly progressive. IMPRESSION: 1. Study is negative for pulmonary embolus. 2. Mildly progressive metastatic change throughout the chest including pulmonary nodularity, right effusion, and destructive posterior chest wall lesions on the right. The largest includes a posterior chest wall mass at T8-T10 in a right paraspinal location with destructive changes involving the T8-T9 and T10 ribs 3. Mildly progressive neoplastic change involving the liver and upper abdomen. 4. Mildly progressive adenopathy of the upper abdomen as well as chest. Electronically signed by: Mark Luong M.D. Laboratory Results 03/30/16 20:25 Red Blood Count 3.78, Mean Corpuscular Volume 93.7, Mean Corpuscular Hemoglobin 31.2, Mean Corpuscular Hemoglobin Concent 33.3, Mean Platelet Volume 9.5, Neutrophils (%) (Auto) 67.7, Lymphocytes (%) (Auto) 17.6, Monocytes (%) (Auto) 10.8, Eosinophils (%) (Auto) 3.0, Basophils (%) (Auto) 0.3, Neutrophils # (Auto ) 4.81, Lymphocytes # (Auto) 1.25, Monocytes # (Auto) 0.77, Eosinophils # (Auto ) 0.21, Basophils # (Auto) 0.02 03/30/16 20:25 Test 03/30/16 20:25 White Blood Count 7.10 K/uL (4.8-10.8) Red Blood Count 3.78 M/uL (4.7-6.1) Hemoglobin 11.8 g/dL (14.0-18.0) Hematocrit 35.4 % (42-52) Mean Corpuscular Volume 93.7 fL (80-100) Mean Corpuscular Hemoglobin 31.2 pg (25-34) Mean Corpuscular Hemoglobin Concent 33.3 g/dl (32-36) Platelet Count 51 K/uL (130-400) Mean Platelet Volume 9.5 fL (7.4-10.4) Neutrophils (%) (Auto) 67.7 % Lymphocytes (%) (Auto) 17.6 % Monocytes (%) (Auto) 10.8 % Eosinophils (%) (Auto) 3.0 % Basophils (%) (Auto) 0.3 % Neutrophils # (Auto) 4.81 K/uL (1.4-6.5) Lymphocytes # (Auto) 1.25 K/uL (1.2-3.4) Monocytes # (Auto) 0.77 K/uL (0.11-0.59) Eosinophils # (Auto) 0.21 K/uL (0-0.5) Basophils # (Auto) 0.02 K/uL (0-0.2) RDW Standard Deviation 55.1 fL (36.4-46.3) RDW Coefficient of Variation 16.2 % (11.5-14.5) Immature Granulocyte % (Auto) 0.6 % Immature Granulocyte # (Auto) 0.04 K/uL (0.00-0.02) Tear Drop Cells 1+ Prothrombin Time 13.4 SECONDS (9.0-12.0) Prothromb Time International Ratio 1.2 (0.9-1.1) Activated Partial Thromboplast Time 32.6 SECONDS (21.0-31.0) Partial Thromboplastin Ratio 1.3 D-Dimer 960 ug/L FEU (0-500) Anion Gap 13.0 mmol/L (3-11) Est Creatinine Clear Calc Drug Dose 80.3 ml/min Estimated GFR () 81.2 Estimated GFR (Non- 70.1 BUN/Creatinine Ratio 7.8 (10-20) Calcium Level 8.3 mg/dl (8.5-10.1) Total Bilirubin 0.7 mg/dl (0.2-1) Direct Bilirubin 0.3 mg/dl (0-0.2) Aspartate Amino Transf (AST/SGOT) 38 U/L (15-37) Alanine Aminotransferase (ALT/SGPT) 14 U/L (12-78) Alkaline Phosphatase 125 U/L (45-117) Total Creatine Kinase 28 U/L (39-308) Creatine Kinase MB < 0.5 ng/ml (0.5-3.6) Creatine Kinase MB Ratio (0-3.0) Troponin I < 0.015 ng/ml (0-0.045) Pro-B-Type Natriuretic Peptide 143 pg/ml (0-900) Total Protein 6.9 gm/dl (6.4-8.2) Albumin 2.7 gm/dl (3.4-5.0) Laboratory results per my review. Medications Administered Medications (Trade) Dose Ordered Sig/Aleah Route Start Time Stop Time Status Last Admin Dose Admin Nitroglycerin (Nitrostat Tab) 0.4 mg Q5M STAT SL 03/30/16 20:56 03/30/16 20:57 DC 03/30/16 21:03 0.4 MG Levetiracetam (Keppra Tab) 500 mg NOW STAT PO 03/30/16 23:36 03/30/16 23:38 DC 03/31/16 00:23 500 MG Hydromorphone HCl (Dilaudid Inj) 1 mg NOW STAT IV 03/30/16 23:36 03/30/16 23:38 DC 03/31/16 00:24 1 MG Hydromorphone HCl (Dilaudid Inj) 1 mg NOW STAT IV 03/31/16 00:51 03/31/16 00:52 DC 03/31/16 00:58 1 MG Heparin Sodium (Porcine) (Heparin 100 Unit/ml 5ml Flush) 5 ml STK-MED ONCE .ROUTE 03/31/16 01:10 03/31/16 01:12 DC 03/31/16 01:25 5 ML Procedure Medications ordered include: Nitrostat Tab SL, Dilaudid IV, Keppra Tab PO. ECG Indication: chest pain Rate (beats per minute): 85 Rhythm: normal sinus Findings: T-wave inversion (Significant in V1 and AVL.) Comparison ECG Date: Mar 25, 2016 Change: T-wave inversions are new. ED Course 2010: Past medical records reviewed. The patient was evaluated in room A10. A complete history and physical exam was performed. A twelve-lead EKG was obtained. His port was accessed. 2055: Ordered Nitrostat Tab 0.4 mg SL. A chest x-ray was obtained. 2149: I reassessed the patient. His vitals are stable and has seen no relief of chest pain. The patient will go for CT scan of the chest to rule out PE 6: I checked in on the patient. We discussed his test results. Ordered Dilaudid Inj 1 mg IV, Keppra Tab 500 mg PO. The patient has a history of recent seizure. 0012: Upon reevaluation the patient has not yet received his pain medication. I discussed findings and results with him. He verbalized agreement of the treatment plan. 0045: I reevaluated the patient. He has seen a little relief. 0051: Ordered Dilaudid Ing 1 mg IV. The patient was discharged home. Medical Decision The patient is a 65 year old male who presents to the ED with chest pain. Differential diagnosis includes cardiac ischemia, PE, CHF, pneumonia, as well as other etiologies were considered. Laboratory studies: Hemoglobin 11.8. Normal white blood cell count. Normal renal function. Negative cardiac enzymes. LFTs slightly abnormal. D-dimer 960. INR 1.2. This is an unfortunate 65-year-old male patient with cancer who presents to the emergency department with worsening chest pain. There is no significant abnormal changes on EKG and cardiac enzymes were negative. His pain was relieved with IV Dilaudid. CT scan findings reveal significant evidence of metastatic disease to the lung as well as to the chest wall. The patient is being followed by oncology. I recommended they follow up with them on Saturday. The patient has oxycodone and Dilaudid to use at home for pain. I've encouraged them to use the Dilaudid. If symptoms worsen, they can return here to the ER. Impression Primary Impression: Left sided chest pain Additional Impression: Metastatic cancer to chest wall Scribe Attestation The scribe's documentation has been prepared under my direction and personally reviewed by me in its entirety. I confirm that the note above accurately reflects all work, treatment, procedures, and medical decision making performed by me. Departure Information Dispostion Home / Self-Care Referrals Travis Lenz M.D. (PCP) Forms HOME CARE DOCUMENTATION FORM, IMPORTANT VISIT INFORMATION Patient Instructions ED Chest Pain Atypical Unkn Cause, My [facility] Additional Instructions Rest. Follow up with oncology this week Use dialudid for pain Problem Qualifiers
[2016-03-31] MEDS ORDERED: HYDROmorphone INJ 1 MG/ML SYR IV STA (00:51)
[2016-03-31 00:59] VITALS: BP 121/85
[2016-03-31 01:00] VITALS: PULSE 85; O2SAT 91
== END 2016-03-31 01:28 | disposition home or self-care (01) ==
LOC: C.EDB 19:58 → C.EDA 03-31 01:28
DX: R07.9 Chest pain, unspecified (principal); C79.89 Secondary malignant neoplasm of other specified sites; F41.9 Anxiety disorder, unspecified; E78.5 Hyperlipidemia, unspecified; I10 Essential (primary) hypertension; Z87.891 Personal history of nicotine dependence

== ENCOUNTER 2016-05-08 22:11 | Emergency (ER) | payer OTHER ==
[~2016-05-08] VITALS: Ht 177.8 cm; Wt 97.5 kg
[~2016-05-08 22:11] MED LIST changes: -DRGTP25 EXT; +FNTTP50 TD; -LEVE250T PO; +LEVE500T PO
[2016-05-08 22:23] VITALS: TEMP 36.8; Ht 177.8 cm; Wt 97.5 kg
--- NOTE | 2016-05-08 22:35 | EMERGENCY ROOM VISIT NOTE ---
History Report prepared by Placido: Mary Ann Erickson Under the Supervision of: Dr. Osbaldo Casper D.O. 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 The patient states that his yelled at him earlier tonight and he went to walk to her and started becoming short of breath. The patient states that his got him to his chair and turned his oxygen up from 2L to 5L and it did help his breathing. He states that his told him that he did lose consciousness for about 5 minutes during the episodes and denies biting tongue or losing control of his bladder. The patient states he has had some chest pain. He states that he currently has metastatic cancer affecting his stomach, liver and brain and has had the cancer removed from his brain by surgery. The patient states that he had one similar seizure episode in February 2016 and was prescribed Keppra. According to the nursing staff the patient stated that he took more Dilaudid today than usual and during the episode was having a hard time speaking. 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 Review of Systems See HPI for pertinent positives and negatives. A total of ten systems were reviewed and were otherwise negative. Past Medical & Surgical Medical Problems: (1) Anemia (2) ANXIETY STATE NOS (3) Arthroscopy of knee joint (4) CELLULITIS OF LEG (5) Cholangiocarcinoma (6) GOUT NOS (7) HYPERLIPIDEMIA NEC/NOS (8) HYPERTENSION NOS (9) Mass of skull (10) Metastatic adenocarcinoma (11) Pleural effusion (12) SYNCOPE AND COLLAPSE Family History Diabetes mellitus FH: heart disease FH: lung disease FHx: cancer Hypertension Social History Smoking Status: Former Smoker Alcohol Use: none Drug Use: none Marital Status: Housing Status: lives with family Occupation Status: retired Current/Historical Medications Scheduled Allopurinol (Zyloprim), 300 MG PO QAM Cetirizine HCl (All Day Allergy), 10 MG PO QAM Fentanyl (Duragesic), 50 MCG TD CQ72HR Hydromorphone HCl (Hydromorphone HCl), 1 DOSE INJ CONTINOUS Levetiractam (Levetiracetam), 500 MG PO BID Pantoprazole (Protonix), 40 MG PO QAM Scheduled PRN Ondansetron Hcl (Zofran), 8 MG PO Q8 PRN for Nausea Oxycodone Ir (Roxicodone Ir), 5 MG PO Q4H PRN for Severe Pain Prochlorperazine Maleate (Compazine), 10 MG PO Q6H PRN for Nausea Allergies Coded Allergies: Ciprofloxacin (Verified Allergy, Severe, SOB/SWELLING, 05/08/16) Sulfa Antibiotics (Verified Allergy, Severe, THROAT CLOSED WITH SULFA DRUGS, 05/08/16) Codeine (Verified Allergy, Unknown, "couldn't breath", 05/08/16) Latex1 -Allergic Contact Dermititis (Unverified Allergy, Unknown, HAD LATEX CATHETER AND HAD BURNING ITCHING, 05/08/16) Physical Exam Vital Signs Date Time Temp Pulse Resp B/P Pulse Ox O2 Delivery O2 Flow Rate FiO2 05/09/16 01:31 108 20 128/80 97 Nasal Cannula 2.0 05/09/16 00:45 97 18 122/75 96 Nasal Cannula 2.0 05/08/16 22:56 93 11 127/88 96 Nasal Cannula 2.0 05/08/16 22:48 99 Nasal Cannula 2.0 05/08/16 22:37 98 Nasal Cannula 2.0 05/08/16 22:34 88 Room Air 05/08/16 22:23 36.8 106 22 124/70 95 Room Air Physical Exam GENERAL: Awake, alert, well-appearing, in no distress HENT: Normocephalic, atraumatic. Oropharynx unremarkable. EYES: Normal conjunctiva. Sclera non-icteric.Right pupillary defect NECK: Supple. No nuchal rigidity. FROM. No JVD. RESPIRATORY: Clear to auscultation. CARDIAC: Regular rate, normal rhythm. Extremities warm and well perfused. Pulses equal. ABDOMEN: Soft, non-distended. No tenderness to palpation. No rebound or guarding. No masses. RECTAL: Deferred. MUSCULOSKELETAL: Chest examination reveals no tenderness, Left chest port present. The back is symmetrical on inspection without obvious abnormality. There is no CVA tenderness to palpation. No joint edema. LOWER EXTREMITIES: Calves are equal size bilaterally and non-tender. No edema. No discoloration. NEURO: Normal sensorium. No sensory or motor deficits noted. SKIN: No rash or jaundice noted. Medical Decision & Procedures ER Provider Diagnostic Interpretation: X-ray: Per my interpretation, radiologist review. SINGLE VIEW CHEST CLINICAL HISTORY: Syncope. Seizure. FINDINGS: An AP, portable, upright chest radiograph is compared to chest x-ray and chest CT dated 03/30/2016. The examination is degraded by portable technique and patient rotation. A left subclavian central venous infusion port is unchanged in position. The heart is enlarged and there is atherosclerotic calcification of the thoracic aorta. Mild pulmonary vascular congestion is observed. A layering right pleural effusion with right basilar consolidation is similar to previous. A small pleural effusion is seen on the left. No pneumothorax is seen. The skeletal structures are osteopenic. Degenerative change is noted in the thoracic spine and shoulders. IMPRESSION: 1. Cardiomegaly with mild pulmonary vascular congestion. 2. A layering right pleural effusion with right basilar consolidation is similar in appearance to the 03/30/2016 examinations. This likely represents atelectasis. Correlate clinically for evidence of superimposed pneumonia. 3. A small pleural effusion is seen on the left. Electronically signed by: Juve Wilson M.D. 05/08/2016 10:52 PM Dictated Date/Time: 05/08/2016 10:[address] Scan: Radiology results as stated below per my review and radiologist interpretation Preliminary Findings Only--- See Final Report for Complete Findings CT HEAD: No change since prior exam of 03/25/16 Right hemispheric extra axial thickening and/ or lesion. Encephalomalacia/gloiosis in the right frontal love. Permeative changes in the right greater wing of the sphenoid/mandaeism frontal bone. Right craniotomy. Radiologist: Bethanie Briseno M.D Study ready at 4728 and initial results transmitted at 4161 Laboratory Results 05/08/16 22:50 Red Blood Count 3.28, Mean Corpuscular Volume 95.4, Mean Corpuscular Hemoglobin 31.7, Mean Corpuscular Hemoglobin Concent 33.2, Mean Platelet Volume 9.4, Neutrophils (%) (Auto) 71.3, Lymphocytes (%) (Auto) 17.5, Monocytes (%) (Auto) 10.8, Eosinophils (%) (Auto) 0.0, Basophils (%) (Auto) 0.2, Neutrophils # (Auto ) 4.08, Lymphocytes # (Auto) 1.00, Monocytes # (Auto) 0.62, Eosinophils # (Auto ) 0.00, Basophils # (Auto) 0.01 05/08/16 22:50 Test 05/08/16 22:50 05/09/16 01:00 White Blood Count 5.72 K/uL (4.8-10.8) Red Blood Count 3.28 M/uL (4.7-6.1) Hemoglobin 10.4 g/dL (14.0-18.0) Hematocrit 31.3 % (42-52) Mean Corpuscular Volume 95.4 fL (80-100) Mean Corpuscular Hemoglobin 31.7 pg (25-34) Mean Corpuscular Hemoglobin Concent 33.2 g/dl (32-36) Platelet Count 50 K/uL (130-400) Mean Platelet Volume 9.4 fL (7.4-10.4) Neutrophils (%) (Auto) 71.3 % Lymphocytes (%) (Auto) 17.5 % Monocytes (%) (Auto) 10.8 % Eosinophils (%) (Auto) 0.0 % Basophils (%) (Auto) 0.2 % Neutrophils # (Auto) 4.08 K/uL (1.4-6.5) Lymphocytes # (Auto) 1.00 K/uL (1.2-3.4) Monocytes # (Auto) 0.62 K/uL (0.11-0.59) Eosinophils # (Auto) 0.00 K/uL (0-0.5) Basophils # (Auto) 0.01 K/uL (0-0.2) RDW Standard Deviation 56.3 fL (36.4-46.3) RDW Coefficient of Variation 16.1 % (11.5-14.5) Immature Granulocyte % (Auto) 0.2 % Immature Granulocyte # (Auto) 0.01 K/uL (0.00-0.02) Prothrombin Time 12.7 SECONDS (9.0-12.0) Prothromb Time International Ratio 1.2 (0.9-1.1) Anion Gap 12.0 mmol/L (3-11) Est Creatinine Clear Calc Drug Dose 71.9 ml/min Estimated GFR () 73.1 Estimated GFR (Non- 63.1 BUN/Creatinine Ratio 13.1 (10-20) Calcium Level 8.5 mg/dl (8.5-10.1) Total Bilirubin 0.9 mg/dl (0.2-1) Direct Bilirubin 0.4 mg/dl (0-0.2) Aspartate Amino Transf (AST/SGOT) 50 U/L (15-37) Alanine Aminotransferase (ALT/SGPT) 14 U/L (12-78) Alkaline Phosphatase 136 U/L (45-117) Total Protein 6.7 gm/dl (6.4-8.2) Albumin 2.6 gm/dl (3.4-5.0) Thyroid Stimulating Hormone (TSH) 1.650 uIu/ml (0.300-4.500) Urine Color DK YELLOW Urine Appearance CLEAR (CLEAR) Urine pH 5.5 (4.5-7.5) Urine Specific [place] 1.017 (1.000-1.030) Urine Protein NEG (NEG) Urine Glucose (UA) NEG (NEG) Urine Ketones 1+ (NEG) Urine Occult Blood NEG (NEG) Urine Nitrite NEG (NEG) Urine Bilirubin NEG (NEG) Urine Urobilinogen NEG (NEG) Urine Leukocyte Esterase NEG (NEG) Laboratory results reviewed by me Medications Administered Medications (Trade) Dose Ordered Sig/Aleah Route Start Time Stop Time Status Last Admin Dose Admin Potassium Chloride (Emily Ciel Elix) 40 meq NOW STAT PO 05/09/16 00:57 05/09/16 00:59 DC 05/09/16 01:03 40 MEQ Lorazepam (Ativan Inj) 1 mg NOW STAT IV 05/09/16 01:33 05/09/16 01:35 DC 05/09/16 01:44 1 MG ECG Indication: syncope Rate (beats per minute): 89 Rhythm: sinus rhythm Findings: no acute ischemic change, left axis deviation, other (Poor R wave progression) ED Course 2224: The patient was evaluated in room A3. A complete history and physical exam was performed. 0030: I reevaluated the patient and he states he still feeling dizziness and i also spoke to the patient's . The welfare case worker is currently speaking to the patient. 0127: I reevaluated the patient. I discussed results and discharge instructions : He verbalized understanding and agreement. The patient is ready for discharge. Medical Decision Differential diagnoses include but are not limited to; Seizure, syncope, cardiac dysrhythmia, medication overdose, medication derangement, TIA. Patient on reevaluation no obvious seizure activity throughout emergency department evaluation. Patient had a low potassium at 3.1 was given by mouth potassium. Patient and patient's family were notified of all the patient's labs as well as CAT scan. Patient is under hospice care the welfare case worker has spoken to hospice regarding this patient. I have discussed the case also with the hospitalist for admission at this point in time the patient does not meet any criteria for admission. I have given the patient Ativan as well. Patient also has a Dilaudid pump for which he is using for pain. The welfare case worker has continued to inform the patient and the patient's family that she has been in communication with the hospitalist liter and they will see the patient tomorrow at their house. Impression Primary Impression: Seizure Additional Impression: Brain lesion Scribe Attestation The scribe's documentation has been prepared under my direction and personally reviewed by me in its entirety. I confirm that the note above accurately reflects all work, treatment, procedures, and medical decision making performed by me. Departure Information Dispostion Home / Self-Care Referrals No Doctor, Assigned (PCP) Forms HOME CARE DOCUMENTATION FORM, IMPORTANT VISIT INFORMATION Patient Instructions ED Seizure Recurrent, My [facility] Additional Instructions Follow-up with her primary care physician this week. Follow-up with hospice this week for further potential treatment Problem Qualifiers
[2016-05-08 22:48] VITALS: O2SAT 99
--- NOTE | 2016-05-08 22:53 | DIAGNOSTIC IMAGING REPORT ---
SINGLE VIEW CHEST CLINICAL HISTORY: Syncope. Seizure. FINDINGS: An AP, portable, upright chest radiograph is compared to chest x-ray and chest CT dated 03/30/2016. The examination is degraded by portable technique and patient rotation. A left subclavian central venous infusion port is unchanged in position. The heart is enlarged and there is atherosclerotic calcification of the thoracic aorta. Mild pulmonary vascular congestion is observed. A layering right pleural effusion with right basilar consolidation is similar to previous. A small pleural effusion is seen on the left. No pneumothorax is seen. The skeletal structures are osteopenic. Degenerative change is noted in the thoracic spine and shoulders. IMPRESSION: 1. Cardiomegaly with mild pulmonary vascular congestion. 2. A layering right pleural effusion with right basilar consolidation is similar in appearance to the 03/30/2016 examinations. This likely represents atelectasis. Correlate clinically for evidence of superimposed pneumonia. 3. A small pleural effusion is seen on the left. Electronically signed by: Juve Wilson M.D. 05/08/2016 10:52 PM Dictated Date/Time: 05/08/2016 10:49 PM
[2016-05-08 23:07] LABS: HEMATOCRIT 31.3 % (42-52); MEAN CELL VOLUME 95.4 fL (80-100); MEAN CORPUSCULAR HEMOGLOBIN 31.7 pg (25-34); MEAN CORPUSCULAR HGB CONC 33.2 g/dl (32-36); RED BLOOD COUNT 3.28 M/uL (4.7-6.1); WHITE BLOOD COUNT 5.72 K/uL (4.8-10.8)
[2016-05-08 23:14] LABS: INR 1.2 (0.9-1.1); PROTHROMBIN TIME (PATIENT) 12.7 SECONDS (9.0-12.0)
[2016-05-08 23:23] LABS: BUN/CREATININE RATIO 13.1 (10-20); CALCIUM 8.5 mg/dl (8.5-10.1); CREATININE 1.2 mg/dl (0.60-1.40); POTASSIUM 3.1 mmol/L (3.5-5.1)
[2016-05-08 23:33] LABS: THYROID STIMULATING HORMONE 1.65 uIu/ml (0.300-4.500)
[2016-05-08 23:35] LABS: BASO % 0.2 %; BASO ABS # 0.01 K/uL (0-0.2); COMPLETE YES; IG% 0.2 %; LYMPH % 17.5 %; MEAN PLATELET VOLUME 9.4 fL (7.4-10.4); MONO % 10.8 %; NEUT % 71.3 %; PLATELET COUNT 50 K/uL (130-400)
[2016-05-09] MEDS ORDERED: [UNRECOGNIZED DRUG - CODE] INJ (00:13)
[2016-05-09] MEDS ORDERED: POTASSIUM CHLORIDE 10 MEQ TABCR PO STA (00:37)
[2016-05-09] MEDS ORDERED: POTASSIUM CHLORIDE 20 MEQ/15 ML UDC PO STA (00:57)
[2016-05-09] MEDS ORDERED: LORAZEPAM 2 MG/ML 1 ML VIAL IV STA (01:33)
[2016-05-09 01:50] LABS: URINE APPEARANCE CLEAR (CLEAR); URINE BILIRUBIN NEG (NEG); URINE COLOR DK YELLOW; URINE NITRITE NEG (NEG); URINE PH 5.5 (4.5-7.5); URINE SPECIFIC GRAVITY 1.017 (1.000-1.030); UROBILINOGEN NEG (NEG)
[2016-05-09 01:57] LABS: MANUAL MICROSCOPIC REQUIRED? NO; REVIEW REQ? NO
[2016-05-09 02:35] VITALS: BP 108/58; PULSE 98; O2SAT 98
--- NOTE | 2016-05-09 07:17 | DIAGNOSTIC IMAGING REPORT ---
HEAD CT NONCONTRAST CT DOSE: 614.27 mGy.cm HISTORY: Mental status change. Seizure. seizure TECHNIQUE: Multiaxial CT images of the head were performed without the use of intravenous contrast. 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 Superimposed right hemispheric craniotomy with postoperative mesh placement. Associated dural thickening with associated soft tissue component involving the destructive process. This is in general similar as compared to the prior study. There are no new or interval findings. There is no midline shift. 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 2. Associated soft tissue mass associated with a destructive process again demonstrating dural extension is unaltered. 3. Postoperative changes including superior dural thickening are unaltered. 4. No evidence for new normal or progressive process. No evidence for midline shift. Electronically signed by: Mark Luong M.D. 05/09/2016 7:16 AM Dictated Date/Time: 05/09/2016 7:12 AM
== END 2016-05-09 02:38 | disposition home or self-care (01) ==
LOC: EDBD 22:11 → C.EDA 22:16
DX: R56.9 Unspecified convulsions (principal); G93.9 Disorder of brain, unspecified; C79.89 Secondary malignant neoplasm of other specified sites; Z92.21 Personal history of antineoplastic chemotherapy; D64.9 Anemia, unspecified; F41.9 Anxiety disorder, unspecified; R06.02 Shortness of breath; M10.9 Gout, unspecified; E78.5 Hyperlipidemia, unspecified; I10 Essential (primary) hypertension; Z83.3 Family history of diabetes mellitus; Z82.49 Family history of ischemic heart disease and other diseases of the circulatory system; Z87.891 Personal history of nicotine dependence; Z79.899 Other long term (current) drug therapy